=== PATIENT | male | born 1955 | race Caucasian/White ===

== ENCOUNTER 2019-04-04 05:42 | Day surgery (SDC) | payer MEDICARE, MEDICAID ==
[~2019-04-04] VITALS: Ht 182.9 cm; Wt 104.4 kg
[~2019-04-04 05:42] MED LIST: ASPI81TA52 PO; BACL10TA2 PO; COU5T PO; ENAL2.5T40 PO; ENOX100S3 SQ; FLO0.4C PO; ISOS30TA6 PO; METF500T PO; METO50TA17 PO; NORTRIPTYLINE PO; OXYM30TA8 PO; PRAV80TA3 PO; TAPE100T2 PO
[2019-04-04] MEDS ORDERED: LORazepam 0.5 MG tablet PO PRN (06:05)
[2019-04-04] MEDS ORDERED: normal saline 1,000 ML IV SCH (06:05)
[2019-04-04] MEDS ORDERED: diphenhydrAMINE 25mg capsule PO PRN (06:05)
[2019-04-04] MEDS ORDERED: LIDOcaine 1% (10mg/ml)w/preservative injection 20ml MDV ONE (06:19)
[2019-04-04] MEDS ORDERED: iohexol 350MG/ML 100ml bottle IV ONE (06:19)
[2019-04-04] MEDS ORDERED: fentaNYL/PF 50MCG/1 ML 2ML syringe ONE (06:19)
[2019-04-04] MEDS ORDERED: midazolam 2 mg/2 ml injection ONE (06:19)
[2019-04-04 06:24] VITALS: BP 117/75
[2019-04-04] MEDS ORDERED: POTA20TA19 PO (06:25)
[2019-04-04] MEDS ORDERED: FURO-149 PO (06:25)
[2019-04-04] MEDS ORDERED: APIX5TAB5 (06:25)
[2019-04-04] MEDS ORDERED: LYR75C PO (06:25)
[2019-04-04] MEDS ORDERED: BUPR8TAB4 SL (06:29)
[2019-04-04] MEDS ORDERED: nitroGLYCERIN-Tridil 50MG/D5W 250 ML IV ONE (06:30)
[2019-04-04] MEDS ORDERED: verapamil 2.5 mg/ml inj IV ONE (06:30)
[2019-04-04] MEDS ORDERED: heparin 1,000unit/ml 10ml vial 10 ML ONE (06:30)
[2019-04-04 07:30] VITALS: BP 114/76
[2019-04-04 07:45] VITALS: BP 121/39
[2019-04-04 08:00] VITALS: BP 106/54
[2019-04-04 08:15] VITALS: BP 109/58
[2019-04-04 08:45] VITALS: BP 120/52
== END 2019-04-04 09:10 | disposition home or self-care (01) ==
LOC: SSTAY O 05:42
PROVIDERS: ATTEND Internal Medicine Interventional Cardiology
DX: R94.39 Abnormal result of other cardiovascular function study (principal); I11.0 Hypertensive heart disease with heart failure; I50.22 Chronic systolic (congestive) heart failure; I48.0 Paroxysmal atrial fibrillation; E78.49 Other hyperlipidemia; E11.9 Type 2 diabetes mellitus without complications; F17.210 Nicotine dependence, cigarettes, uncomplicated; Z86.73 Personal history of transient ischemic attack (TIA), and cerebral infarction without residual deficits; Z79.899 Other long term (current) drug therapy; Z79.82 Long term (current) use of aspirin
CPT/HCPCS: 82948; 93458; 99152; 99153; C1769; C1894; J1644; J2001; J2250; J3010; J7030; Q9967; A4620; A6258; J3490

== ENCOUNTER 2019-05-23 22:18 | Inpatient (IN) | payer MEDICARE, MEDICAID ==
[~2019-05-23] VITALS: Ht 182.9 cm; Wt 112.7 kg
[~2019-05-23 22:18] MED LIST changes: +APIX5TAB5; -BACL10TA2 PO; +BUPR8TAB4 SL; -COU5T PO; -ENOX100S3 SQ; -FLO0.4C PO; +FURO-149 PO; +LYR75C PO; -OXYM30TA8 PO; +POTA20TA19 PO; -TAPE100T2 PO
[2019-05-23] MEDS ORDERED: iohexol 350MG/ML 100ml bottle IV ONE (22:24)
[2019-05-23] MEDS ORDERED: nitroGLYCERIN-Tridil 50MG/D5W 250 ML IV ONE (22:25)
[2019-05-23] MEDS ORDERED: nitroGLYCERIN 1gm ointment UD TP ONE (22:30)
[2019-05-23] MEDS ORDERED: furosemide 10 MG/1 ML 10ml inj IV ONE (22:30)
[2019-05-23 22:41] LABS: ABG BASE EXCESS -4.9 mmol/L (-2.0-3.0); ABG OXYGEN SATURATION 97.4 % (95-98); ABG PCO2 (T) 31.4 mmHg (35.0-45.0); ABG PH (T) 7.397 (7.350-7.450); ABG PO2 (T) 106.1 mmHg (83-108); FLOW 5 L/min; FMetHb 0.3 % (0.3-1.12); FO2Hb 95.2 % (94-100); PATIENT TEMPERATURE 36.6; RESPIRATORY RATE (OBSERVED) 22 b/min; TOTAL HEMOGLOBIN 13.6 G/dl (14.0-17.9)
--- NOTE | 2019-05-23 22:42 | NUR ---
pt going to CT on ekg monitor with Ashly ABDUL
[2019-05-23 22:51] LABS: ALANINE AMINOTRANSFERASE 127 U/L (12-78); ALBUMIN 3.2 G/DL (3.4-5.0); ALBUMIN/GLOBULIN RATIO 1.1 (1.1-1.5); ALKALINE PHOSPHATASE 293 IU/L (46-116); ANION GAP 14 (8-16); ASPARTATE AMINO TRANSFERASE 208 U/L (10-37); BILIRUBIN,TOTAL 1.4 MG/DL (0.1-1.0); BLOOD UREA NITROGEN 41 MG/DL (7-18); BUN/CREATININE RATIO 23.7 (5.4-32.0); CALCIUM 8.9 MG/DL (8.5-10.1); CHLORIDE 100 MMOL/L (99-107); CREATININE 1.73 MG/DL (0.60-1.10); GLUCOSE 177 MG/DL (70-104); POTASSIUM 5.1 MMOL/L (3.5-5.1); SODIUM 136 MMOL/L (135-145); TOTAL PROTEIN 6.1 G/DL (6.4-8.2); eGFR 40 ML/MIN
[2019-05-23 22:58] LABS: MAGNESIUM 1.7 MG/DL (1.5-2.4)
[2019-05-23 23:11] LABS: HEMOGLOBIN 13.6 g/dl (14.0-17.9)
[2019-05-23 23:13] LABS: BASOPHILS # (AUTO) 0.1 X10'3 (0-0.2); BASOPHILS % (AUTO) 0.5 % (0-1); EOSINOPHILS # (AUTO) 0.1 X10'3 (0-0.9); EOSINOPHILS % (AUTO) 0.8 % (0-6); LYMPHOCYTES # (AUTO) 1.2 X10'3 (1.1-4.8); MEAN CORPUSCULAR HEMOGLOBIN 26.4 PG (27.0-31.0); MEAN CORPUSCULAR HGB CONC 32.3 g/dL (33.0-36.5); MEAN CORPUSCULAR VOLUME 81.8 FL (78-98); MEAN PLATELET VOLUME 11.5 FL (7.4-10.4); MONOCYTES % (AUTO) 8.7 % (2-12); NEUTROPHILS # (AUTO) 9.3 X10'3 (1.8-7.7); PLATELET COUNT 142 X10'3 (140-440); RED BLOOD COUNT 5.14 X10'6 (4.70-6.10); RED CELL DISTRIBUTION WIDTH 16.3 % (11.5-14.5); WHITE BLOOD COUNT 11.6 X10'3 (4.5-11.0)
[2019-05-23] MEDS ORDERED: ASPI81TA52 PO (23:19)
[2019-05-23] MEDS ORDERED: FURO-150 PO (23:19)
[2019-05-23] MEDS ORDERED: LYR75C PO (23:19)
[2019-05-23] MEDS ORDERED: AMIT50TA3 PO (23:19)
[2019-05-23] MEDS ORDERED: ISOS30TA9 PO (23:19)
[2019-05-23] MEDS ORDERED: METF500T PO (23:19)
[2019-05-23] MEDS ORDERED: APIX5TAB3 PO (23:19)
[2019-05-23] MEDS ORDERED: PRAV80TA3 PO (23:19)
[2019-05-23] MEDS ORDERED: POTA10TA10 PO (23:19)
[2019-05-23] MEDS ORDERED: METO1TAB25 PO (23:19)
[2019-05-23] MEDS ORDERED: BUPR1FIL3 SL (23:19)
[2019-05-23] MEDS ORDERED: ENAL2.5T40 PO (23:19)
[2019-05-23 23:41] LABS: LARGE PLATELETS MODERATE; PLATELET ESTIMATE NORMAL
[2019-05-23] MEDS ORDERED: HYDROcodone/acetaminophen 5mg/325mg tablet PO PRN (23:50)
[2019-05-23] MEDS ORDERED: morphine 2 MG/ML inj. syringe IV PRN ×2 (23:50)
[2019-05-23] MEDS ORDERED: magnesium hydroxide 30ml (MOM) UD suspension PO PRN (23:50)
[2019-05-23] MEDS ORDERED: mag hydrox/Alum hydrox/simeth 30ml oral suspension PO PRN (23:50)
[2019-05-23] MEDS ORDERED: ondansetron/PF 4mg/2ml inj IV PRN (23:50)
[2019-05-23] MEDS ORDERED: dextrose 50%-water 50ml dispensing syringe IV PRN ×2 (23:50)
[2019-05-23] MEDS ORDERED: MESSAGE TO PHARMACY PO ONE (23:50)
[2019-05-23] MEDS ORDERED: dextrose ORAL solution 15 GM/59 ML bottle PO PRN ×2 (23:50)
[2019-05-23] MEDS ORDERED: glucagon, human recombinant 1mg kit SUBCUT PRN (23:50)
[2019-05-23] MEDS ORDERED: acetaminophen 325mg tablet PO PRN ×2 (23:50)
[2019-05-24] VITALS (7 sets, daily range): BP systolic 88–121; BP diastolic 49–97
--- NOTE | 2019-05-24 01:00 | NUR ---
I have received report from CHANTELL Heath and had the opportunity to ask questions and assume patient care.
--- NOTE | 2019-05-24 01:10 | NUR ---
Pt arrived to room 302 via gurney. With all known belongings. Placed on Mobile #[id number]. Oriented to room. call light in reach. BLL. Side rails up. Will continue to monitor
[2019-05-24 02:26] LABS: BASOPHILS # (AUTO) 0.1 X10'3 (0-0.2); BASOPHILS % (AUTO) 0.7 % (0-1); EOSINOPHILS % (AUTO) 0.4 % (0-6); HEMATOCRIT 39.1 % (42.0-52.0); HEMOGLOBIN 12.7 g/dl (14.0-17.9); LYMPHOCYTES # (AUTO) 1.1 X10'3 (1.1-4.8); LYMPHOCYTES % (AUTO) 11.2 % (21-51); MEAN CORPUSCULAR HEMOGLOBIN 26.7 PG (27.0-31.0); MEAN CORPUSCULAR HGB CONC 32.4 g/dL (33.0-36.5); MEAN CORPUSCULAR VOLUME 82.6 FL (78-98); MEAN PLATELET VOLUME 10.7 FL (7.4-10.4); MONOCYTES # (AUTO) 0.9 X10'3 (0-0.9); MONOCYTES % (AUTO) 9.3 % (2-12); NEUTROPHILS # (AUTO) 7.3 X10'3 (1.8-7.7); NEUTROPHILS % (AUTO) 78.4 % (42-75); PLATELET COUNT 115 X10'3 (140-440); RED BLOOD COUNT 4.74 X10'6 (4.70-6.10); RED CELL DISTRIBUTION WIDTH 16.2 % (11.5-14.5); WHITE BLOOD COUNT 9.3 X10'3 (4.5-11.0)
[2019-05-24 02:29] LABS: ALBUMIN 3.1 G/DL (3.4-5.0); ANION GAP 11 (8-16); BLOOD UREA NITROGEN 41 MG/DL (7-18); BUN/CREATININE RATIO 27.2 (5.4-32.0); CALCIUM 8.6 MG/DL (8.5-10.1); CHLORIDE 101 MMOL/L (99-107); CREATININE 1.51 MG/DL (0.60-1.10); GLUCOSE 171 MG/DL (70-104); POTASSIUM 4.1 MMOL/L (3.5-5.1); SODIUM 137 MMOL/L (135-145); TOTAL CARBON DIOXIDE 25.1 MMOL/L (24-32); eGFR 47 ML/MIN
--- NOTE | 2019-05-24 02:56 | NUR ---
NOTIFIED PAGER ID: [phone] MESSAGE: Reji May, [id number]- order in EMR for nitro 1.5ml/hr drip from 2230, pt has never been on it, pt received 1inch nitro paste in ER at 2300. current bp is 97/68 HR 99 no chest pain. may we d/c drip order silva ABDUL Addendum: 05/24/19 at 0304 by Román Cook RN DR. Silva responded, d/c nitro drip order.
[2019-05-24 03:06] LABS: HEMOGLOBIN A1C 9.6 % (4.5-6.2)
--- NOTE | 2019-05-24 04:17 | NUR ---
MD NOTIFIED called Dr. Silva pt having frequent 10 beat runs of V-tach. Per . check MG and Phos, orders placed, blood drawn and sent to lab stat.
[2019-05-24 04:55] LABS: MAGNESIUM 1.6 MG/DL (1.5-2.4); PHOSPHORUS 5.8 MG/DL (2.3-4.5)
[2019-05-24 04:58] LABS: LARGE PLATELETS MODERATE; PLATELET ESTIMATE DECREASED
[2019-05-24 04:59] LABS: ANISOCYTOSIS 1+; ELLIPTOCYTES 1+
--- NOTE | 2019-05-24 05:09 | NUR ---
NOTIFIED PAGER ID: [phone] MESSAGE: Reji May, [id number]- pt continues to have frequent runs of V-tach, about 10beat runs every 5 minutes, phos is 5.8 and Mg 1.6. Luis E ABDUL
--- NOTE | 2019-05-24 05:25 | NUR ---
I have reviewed Vicky Parra's charting and agree.
[2019-05-24] MEDS ORDERED: metoprolol tartrate 50mg tablet PO ONE (06:10)
--- NOTE | 2019-05-24 06:10 | NUR ---
LOPRESSOR ONE TIME DOSE 1 time dose of Lopressor was given under the 0800 schedule time. MD. Silva ordered Lopressor dose early due to pt abnormal rhythm and wanted the 0800 dose held. one time dose was ordered in order to pull med early and non-admined was to get the doses back on the correct schedule. day shift nurse is aware of these changes and is aware of how the MD wants to proceed.
[2019-05-24] MEDS: metoprolol tartrate 50mg tablet PO SCH ×2 (06:16→20:58)
--- NOTE | 2019-05-24 06:52 | NUR ---
Problems reprioritized. Patient report given, questions answered & plan of care reviewed with Sony ABDUL.
[2019-05-24] MEDS: aspirin 81mg tablet.DR PO SCH (07:33)
[2019-05-24] MEDS: lisinopril 10 MG tablet PO SCH (07:34)
[2019-05-24] MEDS: pregabalin 75mg capsule PO SCH ×4 (07:34→20:58)
[2019-05-24] MEDS: isosorbide dinitrate 30mg tablet PO SCH (07:34)
[2019-05-24] MEDS: furosemide 40mg/4ml inj IV SCH ×4 (07:35→23:41)
[2019-05-24] MEDS ORDERED: potassium Cl 2 mEq/ml inj IV ONE (08:00)
[2019-05-24] MEDS ORDERED: apixaban 5mg tablet PO SCH (08:00)
[2019-05-24] MEDS ORDERED: papaverine 30 mg/ml 2ml inj. ONE (08:00)
[2019-05-24] MEDS ORDERED: HYDROchlorothiazide 25mg tablet PO SCH (08:00)
[2019-05-24] MEDS ORDERED: heparin 10,000 units/1 ML INJ ONE (08:00)
[2019-05-24] MEDS ORDERED: pravastatin 40mg tablet PO SCH (08:00)
[2019-05-24] MEDS ORDERED: metFORMIN 500mg tablet PO SCH (08:00)
[2019-05-24] MEDS ORDERED: potassium Cl 20 mEq SR tablet PO PRN ×2 (08:00→08:50)
[2019-05-24] MEDS ORDERED: magnesium Cl slow-release 64mg tablet PO PRN (08:50)
[2019-05-24] MEDS ORDERED: potassium CL 10mEq/100ml bag 100 ML IV PRN ×2 (08:50)
[2019-05-24] MEDS ORDERED: magnesium 4gm in 100ml NS 100 ML IV PRN (08:50)
[2019-05-24] MEDS ORDERED: magnesium 2GM in 50ml NS 50 ML IV ONE (08:55)
[2019-05-24] MEDS ORDERED: dextrose 50%-water 50ml dispensing syringe IV PRN ×2 (09:05)
[2019-05-24] MEDS ORDERED: MESSAGE TO PHARMACY PO ONE (09:05)
[2019-05-24] MEDS ORDERED: insulin Lispro (HumaLOG) vial - multi-dose SQ SCH (09:05)
[2019-05-24] MEDS ORDERED: glucagon, human recombinant 1mg kit SUBCUT PRN (09:05)
[2019-05-24] MEDS ORDERED: dextrose ORAL solution 15 GM/59 ML bottle PO PRN ×2 (09:05)
[2019-05-24] MEDS: K and/or MAG REPLACEMENT MC SCH (09:21)
[2019-05-24 11:51] LABS: ALANINE AMINOTRANSFERASE 133 U/L (12-78); ALBUMIN/GLOBULIN RATIO 1.1 (1.1-1.5); ALKALINE PHOSPHATASE 248 IU/L (46-116); ASPARTATE AMINO TRANSFERASE 159 U/L (10-37); BILIRUBIN,DIRECT 0.4 MG/DL (0-0.3); TOTAL PROTEIN 5.7 G/DL (6.4-8.2)
--- NOTE | 2019-05-24 13:03 | NUR ---
Spoke with ED personnel at [facility] who stated the patient went directly to the airport for air transport to [facility]. He stated he spoke with [facility]' EMS team and they did not find any belongings in their ambulance. He also spoke with flight crew from [facility] who checked their helicopter and found no belongings. Per [facility] ED record pt had no clothing or wallet with him.
[2019-05-24] MEDS: insulin Lispro (HumaLOG) vial - multi-dose SQ SCH ×2 (13:07→19:32)
[2019-05-24] MEDS: HYDROcodone/acetaminophen 10/325mg tab PO PRN (13:12)
--- NOTE | 2019-05-24 13:15 | NUR ---
Pt is complaining to staff that his wallet and khaki pants are missing, Pt states that when he arrived to [facility] Emergency department that he was wearing his pants and they were removed by hospital staff, Emergency department, security, hospital safe, and EVS "lost and found" were contacted but there were no pants or wallet found, No belongings noted in ED or PCU admission notes when he was transferred, spoke with NOC nurses who admitted pt and no belongings noted, pt's significant other is disgruntled and went down to the lobby to "look for herself", charge nurse and nursing boat cleaning supervisor notified, will continue to search.
--- NOTE | 2019-05-24 13:19 | NUR ---
DM consult: Pt with A1c 9.6 seen at bedside. Pt reports seeing his PCP q 2-3 weeks for DM management and states he takes his medications per rx. Pt reports mostly only checking BG levels when he feels like he is experiencing hyper/hypoglycemia and previously was following a CHO controlled diet however hasn't been recently d/t feeling ill. Pt provided with written and verbal DM education with referral to outpatient DM class and RD contact information. RD encouraged pt to attend class and check BG levels more frequently. Pt admit with SOB, CP, and CHF. Pt endorses a good appetite which is evident with documented 100% PO intake on heart healthy CHO controlled diet meeting nutrient needs. Pt reports still hungry following meals and with food requests that were d/w dietary, see below. Pt denies food allergies, difficulty chewing/swallowing, or constipation/diarrhea. LBM 05/22. Will continue to follow. Recommendations: 1) Continue heart healthy CHO controlled diet 2) Double eggs QD at breakfast; double protein TID; double oatmeal QD at breakfast with margarine 3) Routine bowel care 4) Wt per rx Addendum: 05/24/19 at [address] Amended: Links added.
[2019-05-24] MEDS ORDERED: heparin 10,000 units/1 ML INJ IV PRN (13:45)
[2019-05-24] MEDS ORDERED: heparin 10,000 units/1 ML INJ IV ONE (13:45)
--- NOTE | 2019-05-24 15:31 | NUR ---
Pt refuses to have liriano catheter removed due to being on lasix and would prefer the catheter to make it easier for him since he will be urinating more often.
[2019-05-24] MEDS: heparin 25,000 UNIT/250ml bag 250 ML IV SCH ×2 (15:44→21:54)
--- NOTE | 2019-05-24 18:16 | NUR ---
Patient in room PCU 3023. I have received report from CHANTELL Cardoza and had the opportunity to ask questions and assume patient care.
--- NOTE | 2019-05-24 18:23 | NUR ---
Problems reprioritized. Patient report given, questions answered & plan of care reviewed with Rafaela ABDUL.
[2019-05-24] MEDS: amitriptyline 50mg tablet PO SCH (20:57)
[2019-05-24] MEDS ORDERED: insulin glargine (Lantus) pen - multi-dose SQ SCH (21:00)
[2019-05-24] MEDS: insulin glargine (Lantus) pen - multi-dose SQ SCH (21:59)
--- NOTE | 2019-05-24 23:44 | NUR ---
PAGER ID: [phone] MESSAGE: Patient Reji May is in need of breathing tx. Wheezing is audible without auscultation. Lung sounds are also course and diminished. Pt experiencing SOB. Nathaly Russo [id number] Addendum: 05/24/19 at 2347 by Sherri Puri RN okayed breathing tx to be ordered.
[2019-05-25] MEDS: ipratropium/albuterol 3ml nebule NEB PRN ×4 (00:35→17:51)
[2019-05-25] MEDS: magnesium 2GM in 50ml NS 50 ML IV PRN (02:32)
[2019-05-25 03:00] VITALS: BP 96/61
[2019-05-25] MEDS: HYDROcodone/acetaminophen 10/325mg tab PO PRN ×4 (04:25→21:12)
[2019-05-25 04:38] LABS: BASOPHILS # (AUTO) 0.1 X10'3 (0-0.2); BASOPHILS % (AUTO) 1.2 % (0-1); EOSINOPHILS # (AUTO) 0.2 X10'3 (0-0.9); EOSINOPHILS % (AUTO) 2.1 % (0-6); HEMATOCRIT 38.5 % (42.0-52.0); HEMOGLOBIN 12.5 g/dl (14.0-17.9); LYMPHOCYTES # (AUTO) 1.4 X10'3 (1.1-4.8); LYMPHOCYTES % (AUTO) 15.9 % (21-51); MEAN CORPUSCULAR HEMOGLOBIN 26.7 PG (27.0-31.0); MEAN CORPUSCULAR HGB CONC 32.4 g/dL (33.0-36.5); MEAN CORPUSCULAR VOLUME 82.4 FL (78-98); MEAN PLATELET VOLUME 10.2 FL (7.4-10.4); MONOCYTES % (AUTO) 11.3 % (2-12); NEUTROPHILS # (AUTO) 5.9 X10'3 (1.8-7.7); NEUTROPHILS % (AUTO) 69.5 % (42-75); PLATELET COUNT 104 X10'3 (140-440); RED BLOOD COUNT 4.68 X10'6 (4.70-6.10); RED CELL DISTRIBUTION WIDTH 16.2 % (11.5-14.5); WHITE BLOOD COUNT 8.5 X10'3 (4.5-11.0)
[2019-05-25 04:46] LABS: ANION GAP 9 (8-16); BLOOD UREA NITROGEN 39 MG/DL (7-18); BUN/CREATININE RATIO 31.2 (5.4-32.0); CALCIUM 8.6 MG/DL (8.5-10.1); CHLORIDE 100 MMOL/L (99-107); CREATININE 1.25 MG/DL (0.60-1.10); GLUCOSE 133 MG/DL (70-104); MAGNESIUM 2.9 MG/DL (1.5-2.4); SODIUM 139 MMOL/L (135-145); TOTAL CARBON DIOXIDE 30.3 MMOL/L (24-32); eGFR 59 ML/MIN
--- NOTE | 2019-05-25 05:03 | NUR ---
Critical K: 3.0 PAGER ID: [phone] MESSAGE: [id number] Reji May: Critical K of 3.0, will replace per protocol. Thanks. Alexandria ABDUL [id number]
--- NOTE | 2019-05-25 05:05 | NUR ---
Critical cardiac ptt at 136. Heparin will be held until 0705 per protocol. Will continue to monitor.
--- NOTE | 2019-05-25 06:20 | NUR ---
Patient was weighed using the standing scale. Accurate weight has been reported to pharmacy.
--- NOTE | 2019-05-25 06:22 | NUR ---
Patient in room PCU 3023. I have received report from CHANTELL Hooks and had the opportunity to ask questions and assume patient care.
--- NOTE | 2019-05-25 06:25 | NUR ---
Patient in room PCU 3023. I have received report from Rafaela ABDUL and had the opportunity to ask questions and assume patient care.
[2019-05-25 07:00] VITALS: BP 97/56
[2019-05-25] MEDS: heparin 25,000 UNIT/250ml bag 250 ML IV SCH (07:16)
[2019-05-25] MEDS: K and/or MAG REPLACEMENT MC SCH (08:00)
[2019-05-25] MEDS: lisinopril 10 MG tablet PO SCH (08:32)
[2019-05-25] MEDS: isosorbide dinitrate 30mg tablet PO SCH (08:32)
[2019-05-25] MEDS: pregabalin 75mg capsule PO SCH ×4 (08:32→21:12)
[2019-05-25] MEDS: aspirin 81mg tablet.DR PO SCH (08:32)
[2019-05-25] MEDS: furosemide 40mg/4ml inj IV SCH ×2 (08:32→16:00)
[2019-05-25] MEDS: metoprolol tartrate 50mg tablet PO SCH (08:33)
[2019-05-25 09:00] VITALS: BP 116/65
--- NOTE | 2019-05-25 10:05 | NUR ---
rn starting IV at this time Addendum: 05/25/19 at 1012 by Rj Uriostegui RT Amended: Links added.
--- NOTE | 2019-05-25 10:15 | NUR ---
spoke with Dr Call - due to patients shortness of breath and persistant cough at rest may delay pft until patient able to adequately perfom FVC manuver - cabg procedure not to be until sunday 05/27 at the earliest Addendum: 05/25/19 at 1030 by Rj Uriostegui RT Amended: Links added.
--- NOTE | 2019-05-25 10:50 | NUR ---
PATIENT ATTEMPTED A FVC MANUVER AFTER RECEIVING A DUO NEB NEBULIZED TX BY MOUTHPIECE - AT DURATION OF 3 TO 4 SECONDS ATTEMPT STOPPED DUE TO PERSISTANT COUGH AND SHORTNESS OF BREATH - AT THIS POINT PATIENT COMPLAINED OF DIZZYNESS AND SEEING STARS Addendum: 05/25/19 at 1106 by Rj Uriostegui RT Amended: Links added.
[2019-05-25 11:00] VITALS: BP 99/62
[2019-05-25] MEDS: insulin Lispro (HumaLOG) vial - multi-dose SQ SCH ×2 (13:06→19:41)
[2019-05-25] MEDS: potassium Cl 20 mEq SR tablet PO PRN ×3 (13:07→21:12)
[2019-05-25 15:00] VITALS: BP 100/59
--- NOTE | 2019-05-25 18:16 | NUR ---
Problems reprioritized. Patient report given, questions answered & plan of care reviewed with CHANTELL Morales and CHANTELL Padilla.
--- NOTE | 2019-05-25 18:17 | NUR ---
Problems reprioritized. Patient report given, questions answered & plan of care reviewed with Carmen ABDUL.
--- NOTE | 2019-05-25 18:19 | NUR ---
Orientee documentation: I have reviewed and agree with interventions, assessments performed and documented by Neva ABDUL. Orientee Medication Administration: For this medication-pass time frame, medication were reviewed, dispensed, administered and documented per hospital policy by Neva ABDUL.
--- NOTE | 2019-05-25 18:19 | NUR ---
Patient in room PCU 3023. I have received report from Neva RN and Neva RN and had the opportunity to ask questions and assume patient care.
[2019-05-25 18:30] VITALS: BP 98/58
[2019-05-25] MEDS: carvedilol 6.25mg tablet PO SCH (21:12)
[2019-05-25] MEDS: amitriptyline 50mg tablet PO SCH (21:12)
[2019-05-25] MEDS: enoxaparin 80mg/0.8ml syringe SUBCUT SCH (21:16)
[2019-05-25] MEDS: enoxaparin 30mg/0.3ml syringe SUBCUT SCH (21:16)
[2019-05-25] MEDS: insulin glargine (Lantus) pen - multi-dose SQ SCH (21:21)
--- NOTE | 2019-05-25 23:12 | NUR ---
PAGER ID: [phone] MESSAGE: Patient Reji May Rm [id number] Patient is having frequent ectopy that is intermittently rapid a fib or SVT. He has not been symptomatic and has had this off and on since admit. Carmen ABDUL ext. [phone]
--- NOTE | 2019-05-26 01:00 | NUR ---
Orientee documentation: I have reviewed and agree with all interventions, assessments performed and documented by Valerie ABDUL. Orientee Medication Administration: For this medication-pass time frame, all medication were reviewed, dispensed, administered and documented per hospital policy by Valerie ABDUL.
--- NOTE | 2019-05-26 01:05 | NUR ---
Patient transferred over the ACCE unit at this time and is awake, alert, and appropriate. Report had been called over to Cyndy ABDUL.
[2019-05-26 01:47] LABS: ANION GAP 6 (8-16); BLOOD UREA NITROGEN 35 MG/DL (7-18); BUN/CREATININE RATIO 30.2 (5.4-32.0); CALCIUM 8.6 MG/DL (8.5-10.1); CHLORIDE 103 MMOL/L (99-107); CREATININE 1.16 MG/DL (0.60-1.10); GLUCOSE 94 MG/DL (70-104); MAGNESIUM 2.2 MG/DL (1.5-2.4); POTASSIUM 3.9 MMOL/L (3.5-5.1); SODIUM 141 MMOL/L (135-145); TOTAL CARBON DIOXIDE 32.1 MMOL/L (24-32); eGFR 64 ML/MIN
[2019-05-26 01:49] LABS: BASOPHILS % (AUTO) 0.7 % (0-1); EOSINOPHILS # (AUTO) 0.2 X10'3 (0-0.9); EOSINOPHILS % (AUTO) 2.4 % (0-6); HEMATOCRIT 36.6 % (42.0-52.0); LYMPHOCYTES # (AUTO) 1.2 X10'3 (1.1-4.8); LYMPHOCYTES % (AUTO) 15.5 % (21-51); MEAN CORPUSCULAR HEMOGLOBIN 26.8 PG (27.0-31.0); MEAN CORPUSCULAR HGB CONC 32.8 g/dL (33.0-36.5); MEAN CORPUSCULAR VOLUME 81.8 FL (78-98); MEAN PLATELET VOLUME 10.4 FL (7.4-10.4); MONOCYTES # (AUTO) 0.9 X10'3 (0-0.9); MONOCYTES % (AUTO) 11.3 % (2-12); NEUTROPHILS # (AUTO) 5.3 X10'3 (1.8-7.7); NEUTROPHILS % (AUTO) 70.1 % (42-75); PLATELET COUNT 114 X10'3 (140-440); RED BLOOD COUNT 4.48 X10'6 (4.70-6.10); WHITE BLOOD COUNT 7.6 X10'3 (4.5-11.0)
[2019-05-26 02:00] VITALS: BP_SYST 91; BP_SYST 98; BP_DIAS 54; BP_DIAS 62
--- NOTE | 2019-05-26 02:39 | NUR ---
Called Dr. Silva and informed him regarding the 11 beats of V Tach at 0232 and 0233, and his blood pressure being 85/58 as well as his potassium being 3.9. He acknowledged it but did not order anything at this moment.
[2019-05-26 06:00] VITALS: BP 95/61
--- NOTE | 2019-05-26 06:00 | NUR ---
I have received report from Ronda ABDUL and Brice ABDUL and had the opportunity to ask questions and assume patient care.
[2019-05-26] MEDS: aspirin 81mg tablet.DR PO SCH (07:05)
[2019-05-26] MEDS: pregabalin 75mg capsule PO SCH ×4 (07:05→21:00)
[2019-05-26] MEDS: isosorbide dinitrate 30mg tablet PO SCH (07:07)
[2019-05-26] MEDS: enoxaparin 30mg/0.3ml syringe SUBCUT SCH ×3 (07:08→20:47)
[2019-05-26] MEDS: enoxaparin 80mg/0.8ml syringe SUBCUT SCH ×3 (07:08→23:19)
[2019-05-26] MEDS: HYDROcodone/acetaminophen 10/325mg tab PO PRN ×2 (07:19→19:32)
[2019-05-26] MEDS: carvedilol 6.25mg tablet PO SCH ×2 (08:00→19:34)
[2019-05-26] MEDS: K and/or MAG REPLACEMENT MC SCH (08:00)
[2019-05-26] MEDS: furosemide 40mg/4ml inj IV SCH ×4 (08:00→23:19)
[2019-05-26] MEDS ORDERED: amiodarone 150mg/dext, iso-os 100 ML IV ONE (09:25)
[2019-05-26 11:00] VITALS: BP 99/63
[2019-05-26] MEDS: ALPRAZolam 0.25mg tablet PO PRN (13:14)
[2019-05-26] MEDS: nicotine 14mg patch - 24hr TD SCH (13:14)
[2019-05-26 15:00] VITALS: BP 99/75
--- NOTE | 2019-05-26 15:50 | NUR ---
The pt. refused insulin after breakfast and lunch. Said he would take some if he needs it at diner.
--- NOTE | 2019-05-26 18:00 | NUR ---
Patient in room MED 308. I have received report from VINH ABDUL and had the opportunity to ask questions and assume patient care.
--- NOTE | 2019-05-26 18:24 | NUR ---
Problems reprioritized. Patient report given, questions answered & plan of care reviewed with Pura ABDUL and Brice ABDUL.
--- NOTE | 2019-05-26 18:25 | NUR ---
Orienteer documentation: I have reviewed and agree with all interventions, assessments performed and documented by Salbador ABDUL.
--- NOTE | 2019-05-26 18:38 | NUR ---
PAGER ID: [phone] MESSAGE: 308 pt Lalo. Sustained VTACH > 30 min up to 152 bpm, currently PO Amio 200 mg BID. Please advise. Thank you - Yvrose [phone]
--- NOTE | 2019-05-26 18:39 | NUR ---
Patient up to bathroom placed on portal tele monitor and pm technician notified.
[2019-05-26] MEDS: insulin Lispro (HumaLOG) vial - multi-dose SQ SCH (19:22)
[2019-05-26] MEDS: docusate sod 100mg capsule PO SCH (19:24)
[2019-05-26] MEDS: amiodarone 200mg tablet PO SCH (19:24)
[2019-05-26 19:43] VITALS: BP 125/68
[2019-05-26] MEDS: amitriptyline 50mg tablet PO SCH (21:00)
[2019-05-26] MEDS: temazepam 15mg capsule PO SCH (21:00)
[2019-05-26] MEDS: insulin glargine (Lantus) pen - multi-dose SQ SCH (21:00)
--- NOTE | 2019-05-26 21:20 | NUR ---
patient's 2100 BS was 102. Refused the scheduled lantus.
[2019-05-26 22:00] VITALS: BP 91/61
--- NOTE | 2019-05-26 23:42 | NUR ---
PATIENT REFUSING TO GET BACK INTO BED, REFUSING TO STAY ON MONITORS, NON=COMPLIANT WITH CARE, CAREPLAN
[2019-05-27 02:00] VITALS: BP 98/54
[2019-05-27 04:59] LABS: BASOPHILS # (AUTO) 0.1 X10'3 (0-0.2); BASOPHILS % (AUTO) 0.9 % (0-1); EOSINOPHILS # (AUTO) 0.3 X10'3 (0-0.9); EOSINOPHILS % (AUTO) 3.9 % (0-6); HEMATOCRIT 40.1 % (42.0-52.0); HEMOGLOBIN 12.8 g/dl (14.0-17.9); LYMPHOCYTES # (AUTO) 1.2 X10'3 (1.1-4.8); LYMPHOCYTES % (AUTO) 16.1 % (21-51); MEAN CORPUSCULAR HEMOGLOBIN 26.6 PG (27.0-31.0); MEAN CORPUSCULAR HGB CONC 31.9 g/dL (33.0-36.5); MEAN CORPUSCULAR VOLUME 83.5 FL (78-98); MEAN PLATELET VOLUME 10.6 FL (7.4-10.4); MONOCYTES # (AUTO) 0.9 X10'3 (0-0.9); MONOCYTES % (AUTO) 11.4 % (2-12); NEUTROPHILS # (AUTO) 5.2 X10'3 (1.8-7.7); NEUTROPHILS % (AUTO) 67.7 % (42-75); PLATELET COUNT 122 X10'3 (140-440); RED CELL DISTRIBUTION WIDTH 16.6 % (11.5-14.5); WHITE BLOOD COUNT 7.7 X10'3 (4.5-11.0)
[2019-05-27 05:14] LABS: ALBUMIN 3.3 G/DL (3.4-5.0); ANION GAP 9 (8-16); BLOOD UREA NITROGEN 31 MG/DL (7-18); BUN/CREATININE RATIO 25.4 (5.4-32.0); CALCIUM 8.7 MG/DL (8.5-10.1); CHLORIDE 103 MMOL/L (99-107); CREATININE 1.22 MG/DL (0.60-1.10); GLUCOSE 81 MG/DL (70-104); MAGNESIUM 1.8 MG/DL (1.5-2.4); POTASSIUM 4.1 MMOL/L (3.5-5.1); SODIUM 142 MMOL/L (135-145); TOTAL CARBON DIOXIDE 30.4 MMOL/L (24-32); eGFR 60 ML/MIN
--- NOTE | 2019-05-27 05:27 | NUR ---
I reviewed and agree with all the documentation performed by Dotty
[2019-05-27 06:00] VITALS: BP 105/76
[2019-05-27 06:31] LABS: ANISOCYTOSIS 1+; PLATELET ESTIMATE DECREASED
[2019-05-27 06:32] LABS: POLYCHROMASIA FEW
[2019-05-27 06:33] LABS: SCHISTOCYTES FEW
--- NOTE | 2019-05-27 06:45 | NUR ---
Patient in room MED 308. I have received report from Pura ABDUL and Brice ABDUL and had the opportunity to ask questions and assume patient care.
[2019-05-27 07:11] LABS: PHOSPHORUS 3.9 MG/DL (2.3-4.5)
[2019-05-27] MEDS: pregabalin 75mg capsule PO SCH ×4 (07:23→20:03)
[2019-05-27] MEDS: isosorbide dinitrate 30mg tablet PO SCH (07:23)
[2019-05-27] MEDS: aspirin 81mg tablet.DR PO SCH (07:23)
[2019-05-27] MEDS: furosemide 40mg/4ml inj IV SCH ×3 (07:23→23:45)
[2019-05-27] MEDS: amiodarone 200mg tablet PO SCH ×2 (07:23→19:58)
[2019-05-27] MEDS: enoxaparin 30mg/0.3ml syringe SUBCUT SCH (07:23)
[2019-05-27] MEDS: docusate sod 100mg capsule PO SCH ×2 (07:23→19:57)
[2019-05-27] MEDS: carvedilol 6.25mg tablet PO SCH ×2 (07:23→19:58)
[2019-05-27] MEDS: nicotine 14mg patch - 24hr TD SCH (07:24)
[2019-05-27] MEDS: enoxaparin 80mg/0.8ml syringe SUBCUT SCH (07:24)
[2019-05-27] MEDS: magnesium 2GM in 50ml NS 50 ML IV PRN (07:24)
[2019-05-27] MEDS: K and/or MAG REPLACEMENT MC SCH (08:00)
[2019-05-27 08:34] LABS: HBSAG SCREEN Negative (Negative); HEP A AB, IGM Negative (Negative); HEP B CORE AB, IGM Negative (Negative); HEPATITIS C ANTIBODY <0.1 s/co ratio (0.0-0.9)
[2019-05-27] MEDS: insulin Lispro (HumaLOG) vial - multi-dose SQ SCH ×3 (08:37→19:11)
--- NOTE | 2019-05-27 08:46 | NUR ---
Page to Case Management 308. Call y'all call us about both of these patients. Thank You.
[2019-05-27] MEDS ORDERED: MESSAGE TO NURSING PO ONE ×5 (08:55→10:00)
[2019-05-27 09:38] LABS: PARTIAL THROMBOPLASTIN TIME 32 SECONDS (22-32)
[2019-05-27 11:00] VITALS: BP 101/70
--- NOTE | 2019-05-27 11:46 | NUR ---
Page to PICC Nurse 308-Lalo. Would you mind putting in an Extended in this patient when you get a fee minute. He's probably going to be here another week and they would like to save him a few pokes if we can. Thank You.
[2019-05-27 15:00] VITALS: BP 116/84
[2019-05-27] MEDS: ipratropium/albuterol 3ml nebule NEB PRN (15:27)
[2019-05-27] MEDS: ALPRAZolam 0.25mg tablet PO PRN ×2 (16:35→23:45)
--- NOTE | 2019-05-27 17:32 | NUR ---
Checked Blood Sugar- 55, pt was complaining of a headache. Gave pt two Dextrose shots. Rechecking blood sugar in 15 minutes. Salbador ABDUL
[2019-05-27 18:00] VITALS: BP 112/91
--- NOTE | 2019-05-27 18:00 | NUR ---
Patient in room MED 308. I have received report from Vitaly ABDUL and had the opportunity to ask questions and assume patient care.
--- NOTE | 2019-05-27 18:11 | NUR ---
Problems reprioritized. Patient report given, questions answered & plan of care reviewed with Brice ABDUL and Pura ABDUL.
[2019-05-27] MEDS: metoprolol tartrate 12.5mg (1/2 tablet) PO SCH (19:59)
[2019-05-27] MEDS: amitriptyline 50mg tablet PO SCH (19:59)
[2019-05-27] MEDS ORDERED: mupirocin 2% nasal ointment 1gm UD NS SCH (20:00)
[2019-05-27] MEDS: temazepam 15mg capsule PO SCH (20:00)
--- NOTE | 2019-05-27 20:03 | NUR ---
Paged respiratory. Reji May Room 308. Needs ABG and PFT. The patient is going for CABG, first case in the morning at 0600.
[2019-05-27] MEDS: mupirocin 2% nasal ointment 1gm UD NS SCH (20:55)
[2019-05-27] MEDS: insulin glargine (Lantus) pen - multi-dose SQ SCH (21:06)
--- NOTE | 2019-05-27 21:50 | NUR ---
called blood bank and they told me that the blood is ready for the patient for tomorrow.
[2019-05-27 22:00] VITALS: BP 129/82
--- NOTE | 2019-05-27 22:07 | NUR ---
Discussed consents for CABG surgery in am; patient expressed that when he has received Diprivan in the past, he has had severe hallucinations and that he does not want any Diprivan during surgery or post surgical care. I stated it was not in his allergy list, and it was not noted by the Anesthesiologist in his notes, therefore I would call Anesthesiologist to confirm conversation and notation prior to having patient sign anesthesiologist consent. Patient was adamant it be documented on his consent for for anesthesiology not to administer Diprivan during upcoming coronary artery bypass graft in am 05/28 would call and verify with Dr. Gustafson I stated this to patient. I left message on Dr. Rodarte's voicemail, as I attempted to reach him at 2 different numbers, one of which was supplied by Customer Accounts Advisor on shift. Charge nurse informed as well.
[2019-05-27 23:11] LABS: ABG BASE EXCESS 5.9 mmol/L (-2.0-3.0); ABG HCO3 28.2 mmol/L (22.0-26.0); ABG OXYGEN SATURATION 95.7 % (95-98); ABG PCO2 (T) 32.5 mmHg (35.0-45.0); ABG PH (T) 7.554 (7.350-7.450); ABG PO2 (T) 70.2 mmHg (83-108); ALLEN'S TEST Positive; FCOHb 0.9 % (0.5-1.5); FMetHb 0.2 % (0.3-1.12); FO2Hb 94.6 % (94-100); PATIENT TEMPERATURE 36.3; RESPIRATORY RATE (OBSERVED) 22 b/min; TOTAL HEMOGLOBIN 13.1 G/dl (14.0-17.9)
[2019-05-28] VITALS (16 sets, daily range): BP systolic 90–142; BP diastolic 45–92
[2019-05-28 03:19] LABS: ALBUMIN 3.3 G/DL (3.4-5.0); ANION GAP 6 (8-16); BLOOD UREA NITROGEN 31 MG/DL (7-18); BUN/CREATININE RATIO 27.7 (5.4-32.0); CALCIUM 8.8 MG/DL (8.5-10.1); CHLORIDE 104 MMOL/L (99-107); CREATININE 1.12 MG/DL (0.60-1.10); GLUCOSE 83 MG/DL (70-104); MAGNESIUM 1.8 MG/DL (1.5-2.4); SODIUM 143 MMOL/L (135-145); TOTAL CARBON DIOXIDE 33.1 MMOL/L (24-32); eGFR 67 ML/MIN
[2019-05-28 03:24] LABS: BASOPHILS # (AUTO) 0.1 X10'3 (0-0.2); BASOPHILS % (AUTO) 1.1 % (0-1); EOSINOPHILS # (AUTO) 0.3 X10'3 (0-0.9); EOSINOPHILS % (AUTO) 3.2 % (0-6); HEMATOCRIT 39.2 % (42.0-52.0); HEMOGLOBIN 12.7 g/dl (14.0-17.9); LYMPHOCYTES # (AUTO) 1.4 X10'3 (1.1-4.8); LYMPHOCYTES % (AUTO) 16.1 % (21-51); MEAN CORPUSCULAR HEMOGLOBIN 26.9 PG (27.0-31.0); MEAN CORPUSCULAR HGB CONC 32.5 g/dL (33.0-36.5); MEAN CORPUSCULAR VOLUME 82.8 FL (78-98); MEAN PLATELET VOLUME 10.6 FL (7.4-10.4); MONOCYTES # (AUTO) 1.1 X10'3 (0-0.9); MONOCYTES % (AUTO) 13.1 % (2-12); NEUTROPHILS # (AUTO) 5.6 X10'3 (1.8-7.7); NEUTROPHILS % (AUTO) 66.5 % (42-75); PLATELET COUNT 138 X10'3 (140-440); RED BLOOD COUNT 4.73 X10'6 (4.70-6.10); RED CELL DISTRIBUTION WIDTH 16.6 % (11.5-14.5); WHITE BLOOD COUNT 8.5 X10'3 (4.5-11.0)
[2019-05-28] MEDS: ipratropium/albuterol 3ml nebule NEB PRN (04:47)
[2019-05-28] MEDS ORDERED: ROPIVAcaine 0.5% (5mg/ml) 30ml vial ONE (05:01)
--- NOTE | 2019-05-28 05:10 | NUR ---
Patient concerned about belongings not being with him. Called registration at 0415 and they said they will be up to retrieve the valuables. Patient Access up to retrieve patient's valuables at this time. Gold ring, watch and cell phone taken down to be put in the safe. Receipt in chart.
[2019-05-28] MEDS ORDERED: vancomycin/NS 1 GM ADD-VANTAGE 250 ML IV ONE (05:30)
[2019-05-28] MEDS ORDERED: insulin glargine (Lantus) pen - multi-dose SQ PRN (05:30)
[2019-05-28] MEDS ORDERED: dextrose 50%-water 50ml dispensing syringe IV PRN (05:30)
[2019-05-28] MEDS ORDERED: cefazolin/dext.iso 2gm/50ml 50 ML IV ONE (05:30)
[2019-05-28] MEDS ORDERED: NUT.TX.IMPAIRED DIGEST FXN (Ensure Clear) 237 ML PO ONE (05:30)
[2019-05-28] MEDS ORDERED: gabapentin 400mg capsule PO ONE (05:30)
[2019-05-28] MEDS ORDERED: LORazepam 2 mg/ml vial IV ONE (06:00)
[2019-05-28] MEDS ORDERED: famotidine 20mg tablet PO ONE (06:00)
[2019-05-28] MEDS: metoprolol tartrate 12.5mg (1/2 tablet) PO SCH (06:29)
[2019-05-28] MEDS ORDERED: SUFENTANIL CITRATE 50 MCG/ML 2ml ampule IV ONE (06:52)
[2019-05-28] MEDS ORDERED: midazolam 2 mg/2 ml injection ONE ×2 (06:52)
[2019-05-28] MEDS ORDERED: NORepinephrine bitartrate 8 MG in NS 250 ML BAG (32 mcg/ml) IV ONE (06:53)
[2019-05-28] MEDS ORDERED: INSULIN R 100 UNIT in NS 100ML (1 UNIT/1 ML) BAG IV ONE (06:53)
[2019-05-28] MEDS ORDERED: ePHEDrine 50MG/ML INJ. ONE (06:53)
[2019-05-28] MEDS ORDERED: sevoflurane 250ml liquid IH ONE (06:53)
[2019-05-28] MEDS ORDERED: rocuronium 10mg/ml inj IV ONE ×2 (06:53→06:57)
[2019-05-28] MEDS ORDERED: DOPamine/D5W 400mg/250ml bag IV ONE (06:53)
[2019-05-28] MEDS ORDERED: calcium chloride 100 MG/1 ML inj IV ONE ×2 (06:53→08:00)
[2019-05-28] MEDS ORDERED: aminocaproic acid 250 MG/1 ML inj. ONE ×2 (06:53→08:00)
[2019-05-28] MEDS ORDERED: protamine sulf. 10mg/ml inj. IV ONE (06:53)
[2019-05-28] MEDS ORDERED: etomidate 2mg/ml inj. ONE (06:57)
[2019-05-28] MEDS ORDERED: LIDOcaine 2% 10ml TOPICAL JELLY (Urojet) ONE (07:32)
[2019-05-28] MEDS ORDERED: albumin (human) 25% 100 ML IV solution IV ONE (08:00)
[2019-05-28] MEDS ORDERED: LIDOcaine 2% (20 mg/ml) 5ml cardiac syringe ONE (08:00)
[2019-05-28] MEDS ORDERED: sodium bicarbonate (8.4%) 1 mEq/ml syringe ONE (08:00)
[2019-05-28] MEDS ORDERED: heparin 1,000 units/ml 10ml inj ONE (08:00)
[2019-05-28] MEDS ORDERED: NORepinephrine 1 mg/ml inj IV ONE (08:00)
[2019-05-28] MEDS ORDERED: MAGNESIUM SULFATE 4 MEQ/ML (5gm/10ml) injection ONE (08:00)
[2019-05-28] MEDS ORDERED: methylPREDNISolone sod. succ. 500mg inj ONE (08:00)
[2019-05-28 08:01] LABS: ABG BASE EXCESS VENOUS 2.4 mmol/L; ABG HCO3 VENOUS 27.8 mmol/L; ABG PCO2 VENOUS 46.4 mmHg; ABG PO2 VENOUS 52.8 mmHg; CL (ABG) 98 mmol/L (99-107); FHHb VENOUS 14.7 %; FMetHb VENOUS 0.5 %; FO2Hb VENOUS 83.8 %; GLUCOSE (ABG) 181 mg/dl (70-104); K (ABG) 3.9 mmol/L (3.3-5.1); NA (ABG) 136 mmol/L (135-145); TOTAL HEMOGLOBIN 12.2 G/dl (14.0-17.9)
[2019-05-28] MEDS ORDERED: heparin 10,000 units/1 ML INJ IR ONE (08:49)
[2019-05-28] MEDS ORDERED: papaverine 30 mg/ml 2ml inj. IA ONE (08:49)
[2019-05-28 09:15] LABS: ABG BASE EXCESS VENOUS 0.8 mmol/L; ABG HCO3 VENOUS 26.7 mmol/L; ABG PCO2 VENOUS 48.2 mmHg; ABG PO2 VENOUS 35.6 mmHg; CL (ABG) 98 mmol/L (99-107); FHHb VENOUS 38.1 %; FMetHb VENOUS 0.4 %; FO2Hb VENOUS 60.5 %; GLUCOSE (ABG) 171 mg/dl (70-104); IONIZED CA (ABG) 1.11 mmol/L (1.03-1.32); K (ABG) 3.7 mmol/L (3.3-5.1); NA (ABG) 135 mmol/L (135-145); TOTAL HEMOGLOBIN 12.1 G/dl (14.0-17.9)
[2019-05-28 10:11] LABS: ABG HCO3 29.4 mmol/L (22.0-26.0); ABG OXYGEN SATURATION 99.2 % (95-98); ABG PH 7.453 (7.350-7.450); ABG PO2 213.9 mmHg (60.0-100.0); CL (ABG) 98 mmol/L (99-107); FCOHb 0.7 % (0.5-1.5); FMetHb 0.5 % (0.3-1.12); GLUCOSE (ABG) 160 mg/dl (70-104); IONIZED CA (ABG) 1.03 mmol/L (1.03-1.32); K (ABG) 3.5 mmol/L (3.3-5.1); NA (ABG) 135 mmol/L (135-145); TOTAL HEMOGLOBIN 9.3 G/dl (14.0-17.9)
[2019-05-28 10:26] LABS: ABG BASE EXCESS 3.1 mmol/L (-2.0-3.0); ABG HCO3 27.5 mmol/L (22.0-26.0); ABG OXYGEN SATURATION 99.2 % (95-98); ABG PCO2 41.3 mmHg (35.0-45.0); ABG PH 7.441 (7.350-7.450); CL (ABG) 99 mmol/L (99-107); FCOHb 0.5 % (0.5-1.5); FMetHb 0.5 % (0.3-1.12); FO2Hb 98.2 % (94-100); GLUCOSE (ABG) 153 mg/dl (70-104); IONIZED CA (ABG) 1.06 mmol/L (1.03-1.32); K (ABG) 4.2 mmol/L (3.3-5.1); NA (ABG) 135 mmol/L (135-145); TOTAL HEMOGLOBIN 9.2 G/dl (14.0-17.9)
[2019-05-28 10:47] LABS: ABG BASE EXCESS 2.8 mmol/L (-2.0-3.0); ABG HCO3 27.1 mmol/L (22.0-26.0); ABG OXYGEN SATURATION 99.2 % (95-98); ABG PCO2 40.1 mmHg (35.0-45.0); ABG PH 7.447 (7.350-7.450); ABG PO2 236.3 mmHg (60.0-100.0); CL (ABG) 100 mmol/L (99-107); FCOHb 0.5 % (0.5-1.5); FMetHb 0.6 % (0.3-1.12); FO2Hb 98.1 % (94-100); GLUCOSE (ABG) 150 mg/dl (70-104); IONIZED CA (ABG) 1.07 mmol/L (1.03-1.32); K (ABG) 4.3 mmol/L (3.3-5.1); NA (ABG) 135 mmol/L (135-145); TOTAL HEMOGLOBIN 9.1 G/dl (14.0-17.9)
[2019-05-28] MEDS ORDERED: ipratropium/albuterol 3ml nebule IH SCH (11:00)
[2019-05-28 11:10] LABS: ABG BASE EXCESS 4.4 mmol/L (-2.0-3.0); ABG HCO3 28.7 mmol/L (22.0-26.0); ABG OXYGEN SATURATION 99.1 % (95-98); ABG PCO2 41.6 mmHg (35.0-45.0); ABG PH 7.456 (7.350-7.450); ABG PO2 176.4 mmHg (60.0-100.0); CL (ABG) 101 mmol/L (99-107); FCOHb 0.6 % (0.5-1.5); FMetHb 0.5 % (0.3-1.12); GLUCOSE (ABG) 158 mg/dl (70-104); IONIZED CA (ABG) 1.06 mmol/L (1.03-1.32); K (ABG) 4.3 mmol/L (3.3-5.1); NA (ABG) 135 mmol/L (135-145); TOTAL HEMOGLOBIN 9.1 G/dl (14.0-17.9)
[2019-05-28 11:41] LABS: ABG BASE EXCESS 5.1 mmol/L (-2.0-3.0); ABG HCO3 29.3 mmol/L (22.0-26.0); ABG OXYGEN SATURATION 96.9 % (95-98); ABG PCO2 42.1 mmHg (35.0-45.0); ABG PH 7.461 (7.350-7.450); CL (ABG) 101 mmol/L (99-107); FCOHb 0.9 % (0.5-1.5); FMetHb 0.6 % (0.3-1.12); FO2Hb 95.4 % (94-100); GLUCOSE (ABG) 155 mg/dl (70-104); IONIZED CA (ABG) 1.27 mmol/L (1.03-1.32); K (ABG) 4.3 mmol/L (3.3-5.1); NA (ABG) 135 mmol/L (135-145); TOTAL HEMOGLOBIN 8.4 G/dl (14.0-17.9)
[2019-05-28 11:46] LABS: ABG BASE EXCESS VENOUS 5.3 mmol/L; ABG HCO3 VENOUS 30.6 mmol/L; ABG PCO2 VENOUS 49.6 mmHg; ABG PO2 VENOUS 33.3 mmHg; CL (ABG) 100 mmol/L (99-107); FCOHb VENOUS 1.3 %; FHHb VENOUS 39.9 %; FMetHb VENOUS 0.6 %; FO2Hb VENOUS 58.2 %; GLUCOSE (ABG) 160 mg/dl (70-104); IONIZED CA (ABG) 1.29 mmol/L (1.03-1.32); K (ABG) 4.1 mmol/L (3.3-5.1); NA (ABG) 135 mmol/L (135-145); TOTAL HEMOGLOBIN 8.4 G/dl (14.0-17.9)
[2019-05-28] MEDS: K and/or MAG REPLACEMENT MC SCH (11:50)
[2019-05-28] MEDS: furosemide 40mg/4ml inj IV SCH (11:50)
[2019-05-28 12:15] LABS: ABG BASE EXCESS VENOUS 3.9 mmol/L; ABG HCO3 VENOUS 30.4 mmol/L; ABG PCO2 VENOUS 55.5 mmHg; ABG PO2 VENOUS 37.7 mmHg; CL (ABG) 102 mmol/L (99-107); FCOHb VENOUS 1.2 %; FHHb VENOUS 36.9 %; FMetHb VENOUS 0.5 %; FO2Hb VENOUS 61.4 %; GLUCOSE (ABG) 166 mg/dl (70-104); IONIZED CA (ABG) 1.22 mmol/L (1.03-1.32); K (ABG) 3.9 mmol/L (3.3-5.1); NA (ABG) 137 mmol/L (135-145); TOTAL HEMOGLOBIN 10.1 G/dl (14.0-17.9)
[2019-05-28 12:36] LABS: ACT @ 1.70 U 316 SEC (193-297); ACT @ 2.84 U 496 SEC (260-420); BASELINE ACT 142 SEC (101-148)
[2019-05-28 12:36] LABS: ACTIVATED CLOTTING TIME 122 SEC (101-148)
[2019-05-28] MEDS: aspirin 81mg tablet.DR PO SCH (12:50)
[2019-05-28] MEDS: isosorbide dinitrate 30mg tablet PO SCH (12:50)
[2019-05-28] MEDS: docusate sod 100mg capsule PO SCH (12:50)
[2019-05-28] MEDS: pregabalin 75mg capsule PO SCH ×4 (12:50→20:22)
[2019-05-28] MEDS: mupirocin 2% nasal ointment 1gm UD NS SCH ×2 (12:50→20:22)
[2019-05-28] MEDS: carvedilol 6.25mg tablet PO SCH (12:50)
[2019-05-28] MEDS: amiodarone 200mg tablet PO SCH (12:50)
[2019-05-28] MEDS: nicotine 14mg patch - 24hr TD SCH (12:50)
[2019-05-28] MEDS ORDERED: NORepinephrine 8mg/ 250ml NS 250 ML IV PRN (13:14)
[2019-05-28] MEDS ORDERED: nitroGLYCERIN-Tridil 50MG/D5W 250 ML IV PRN (13:14)
[2019-05-28] MEDS ORDERED: niCARDipine-NS 40mg/200ml IVPB 200 ML IV PRN ×2 (13:14→13:43)
[2019-05-28] MEDS ORDERED: metoclopramide 5 mg/ml inj IV PRN (13:15)
[2019-05-28] MEDS ORDERED: albumin (Human) 5% 250ml 250 ML IV PRN (13:15)
[2019-05-28] MEDS ORDERED: normal saline 250ml IV soln 250 ML IV PRN (13:15)
[2019-05-28] MEDS ORDERED: pantoprazole 40 MG vial IV ONE (13:15)
[2019-05-28] MEDS ORDERED: magnesium hydroxide 30ml (MOM) UD suspension PO PRN (13:15)
[2019-05-28] MEDS ORDERED: sodium phosphate inj. 15 MMOL in dextrose 5%-water 150 ML IV PRN (13:15)
[2019-05-28] MEDS ORDERED: magnesium 4gm in 100ml NS 100 ML IV PRN (13:15)
[2019-05-28] MEDS ORDERED: potassium Cl 20 mEq SR tablet PO PRN (13:15)
[2019-05-28] MEDS ORDERED: sodium phosphate inj. 30 MMOL in dextrose 5%-water 250 ML IV PRN (13:15)
[2019-05-28] MEDS ORDERED: acetaminophen 325mg tablet PO PRN (13:15)
[2019-05-28] MEDS ORDERED: ondansetron/PF 4mg/2ml inj IV PRN (13:15)
[2019-05-28] MEDS ORDERED: insulin regular, human inj. 100 UNITS in normal saline 100ml IV soln 100 ML IV SCH ×2 (13:15)
[2019-05-28] MEDS ORDERED: Neutra Phos packet PO PRN (13:15)
--- NOTE | 2019-05-28 13:21 | NUR ---
Received to room 2044, accompanied by MDs and surgical crew. Placed on ventilator, to medical oncologist, arterial line and PA line pressure monitored. Chest tubes to suction at 20 cm. Alfonso cath to gravity drainage. Dressings are dry and intact. See assessment record. All vasoactive drugs are infusing via central line. Addendum: 05/28/19 at 1751 by Carmela Alfonso RN Nela Sanders, anesthesiologist is Kaylynn.
[2019-05-28 13:51] LABS: BASOPHILS # (AUTO) 0.1 X10'3 (0-0.2); BASOPHILS % (AUTO) 0.3 % (0-1); EOSINOPHILS # (AUTO) 0.1 X10'3 (0-0.9); EOSINOPHILS % (AUTO) 0.5 % (0-6); HEMATOCRIT 37.1 % (42.0-52.0); HEMOGLOBIN 11.8 g/dl (14.0-17.9); LYMPHOCYTES # (AUTO) 0.7 X10'3 (1.1-4.8); LYMPHOCYTES % (AUTO) 2.6 % (21-51); MEAN CORPUSCULAR HEMOGLOBIN 26.2 PG (27.0-31.0); MEAN CORPUSCULAR HGB CONC 31.7 g/dL (33.0-36.5); MEAN CORPUSCULAR VOLUME 82.7 FL (78-98); MEAN PLATELET VOLUME 10.5 FL (7.4-10.4); MONOCYTES % (AUTO) 3.3 % (2-12); NEUTROPHILS # (AUTO) 26.9 X10'3 (1.8-7.7); NEUTROPHILS % (AUTO) 93.3 % (42-75); PLATELET COUNT 122 X10'3 (140-440); RED BLOOD COUNT 4.48 X10'6 (4.70-6.10); RED CELL DISTRIBUTION WIDTH 16.8 % (11.5-14.5)
[2019-05-28 13:51] LABS: ABG BASE EXCESS 1.7 mmol/L (-2.0-3.0); ABG HCO3 28.4 mmol/L (22.0-26.0); ABG PCO2 (T) 53.8 mmHg (35.0-45.0); ABG PO2 (T) 78.5 mmHg (83-108); FCOHb 0.8 % (0.5-1.5); FMetHb 0.3 % (0.3-1.12); PEEP 5 cm H2O; RESPIRATORY RATE 12 b/min; RESPIRATORY RATE (OBSERVED) 12 b/min; TIDAL VOLUME 600 mL; TOTAL HEMOGLOBIN 12.7 G/dl (14.0-17.9)
[2019-05-28 13:53] LABS: WHITE BLOOD COUNT 28.8 X10'3 (4.5-11.0)
[2019-05-28 14:08] LABS: PARTIAL THROMBOPLASTIN TIME 34 SECONDS (22-32)
[2019-05-28] MEDS: sodium chloride 0.45% 1,000 ML IV SCH (14:19)
[2019-05-28 14:20] LABS: ALANINE AMINOTRANSFERASE 44 U/L (12-78); ALBUMIN 2.2 G/DL (3.4-5.0); ALBUMIN/GLOBULIN RATIO 1.1 (1.1-1.5); ALKALINE PHOSPHATASE 137 IU/L (46-116); ANION GAP 8 (8-16); ASPARTATE AMINO TRANSFERASE 56 U/L (10-37); BILIRUBIN,TOTAL 1.3 MG/DL (0.1-1.0); BLOOD UREA NITROGEN 27 MG/DL (7-18); BUN/CREATININE RATIO 30.7 (5.4-32.0); CALCIUM 8.2 MG/DL (8.5-10.1); CHLORIDE 110 MMOL/L (99-107); CREATININE 0.88 MG/DL (0.60-1.10); GLUCOSE 150 MG/DL (70-104); MAGNESIUM 2.4 MG/DL (1.5-2.4); PHOSPHORUS 2.7 MG/DL (2.3-4.5); POTASSIUM 3.8 MMOL/L (3.5-5.1); SODIUM 146 MMOL/L (135-145); TOTAL CARBON DIOXIDE 27.8 MMOL/L (24-32); TOTAL PROTEIN 4.2 G/DL (6.4-8.2); eGFR 88 ML/MIN
[2019-05-28] MEDS: DOPamine 400mg/D5W 250ml 250 ML IV PRN (14:20)
[2019-05-28 14:23] LABS: TOTAL CELLS COUNTED 100
[2019-05-28 14:24] LABS: ANISOCYTOSIS 1+; PLATELET ESTIMATE DECREASED
[2019-05-28] MEDS: epiNEPHrine inj 5 MG, calcium chloride inj. 1,000 MG in normal saline 250ml IV soln 250 ML IV SCH (14:29)
[2019-05-28] MEDS: potassium Cl 20mEq/100mL bag 100 ML IV PRN ×2 (15:08→17:17)
[2019-05-28] MEDS: insulin regular, human 100 UNIT in normal saline 100ml IV soln 100 ML IV SCH ×2 (15:13)
[2019-05-28] MEDS: ceFAZolin 1GM/D5W- ADD-VANTAGE 50 ML IV SCH ×2 (16:24→23:46)
[2019-05-28] MEDS: morphine 4 MG/ML inj SYRINge IV PRN ×5 (16:27→22:59)
--- NOTE | 2019-05-28 17:28 | NUR ---
UPdated Dr. Call regarding patient condition, current chest tube output, urine output, last C.I. 1.7, current medicines. He wants albumin to be given, prior discussion when patient arrived from OR is limit fluids. No new orders.
[2019-05-28] MEDS ORDERED: insulin Lispro (HumaLOG) vial - multi-dose SQ SCH (18:00)
--- NOTE | 2019-05-28 18:27 | NUR ---
Problems reprioritized. Patient report given, questions answered & plan of care reviewed with Miladys Schmidt RN.
--- NOTE | 2019-05-28 18:36 | NUR ---
183..Patient in room ICU 2044. I have received report from Adilson ABDUL and had the opportunity to ask questions and assume patient care.
[2019-05-28] MEDS: magnesium 2GM in 50ml NS 50 ML IV PRN (19:05)
[2019-05-28] MEDS ORDERED: docusate sod 100mg capsule PO SCH (20:00)
[2019-05-28 20:11] LABS: BASOPHILS % (AUTO) 0.1 % (0-1); EOSINOPHILS % (AUTO) 0 % (0-6); HEMATOCRIT 35.3 % (42.0-52.0); HEMOGLOBIN 11.1 g/dl (14.0-17.9); LYMPHOCYTES # (AUTO) 0.2 X10'3 (1.1-4.8); LYMPHOCYTES % (AUTO) 1.2 % (21-51); MEAN CORPUSCULAR HGB CONC 31.5 g/dL (33.0-36.5); MEAN CORPUSCULAR VOLUME 82.7 FL (78-98); MEAN PLATELET VOLUME 10.8 FL (7.4-10.4); MONOCYTES # (AUTO) 0.5 X10'3 (0-0.9); MONOCYTES % (AUTO) 3.1 % (2-12); NEUTROPHILS # (AUTO) 16.2 X10'3 (1.8-7.7); NEUTROPHILS % (AUTO) 95.6 % (42-75); PLATELET COUNT 132 X10'3 (140-440); RED BLOOD COUNT 4.27 X10'6 (4.70-6.10); RED CELL DISTRIBUTION WIDTH 16.4 % (11.5-14.5)
[2019-05-28] MEDS: vancomycin/NS 1 GM ADD-VANTAGE 250 ML IV SCH (20:21)
[2019-05-28] MEDS: gabapentin 300mg capsule PO SCH (20:22)
[2019-05-28] MEDS: amitriptyline 50mg tablet PO SCH (20:22)
[2019-05-28 20:24] LABS: ALBUMIN 2.5 G/DL (3.4-5.0); ANION GAP 9 (8-16); BLOOD UREA NITROGEN 27 MG/DL (7-18); BUN/CREATININE RATIO 27.8 (5.4-32.0); CHLORIDE 110 MMOL/L (99-107); CREATININE 0.97 MG/DL (0.60-1.10); GLUCOSE 174 MG/DL (70-104); PHOSPHORUS 2.9 MG/DL (2.3-4.5); POTASSIUM 4.9 MMOL/L (3.5-5.1); SODIUM 146 MMOL/L (135-145); eGFR 79 ML/MIN
[2019-05-28 20:36] LABS: LARGE PLATELETS FEW; PLATELET ESTIMATE DECREASED
--- NOTE | 2019-05-28 21:28 | NUR ---
2000..Assessment as noted, morphine given for pain appears effective, updated, no orders at this time.
[2019-05-29] VITALS (24 sets, daily range): BP systolic 88–129; BP diastolic 42–56
[2019-05-29] MEDS: DOPamine 400mg/D5W 250ml 250 ML IV PRN ×2 (00:37→14:54)
--- NOTE | 2019-05-29 00:56 | NUR ---
0000..Continues to rest quietly, prn morphine remains effective for pain relief, no other changes noted.
[2019-05-29 01:46] LABS: ABG BASE EXCESS 0.1 mmol/L (-2.0-3.0); ABG HCO3 24.9 mmol/L (22.0-26.0); ABG OXYGEN SATURATION 87.7 % (95-98); ABG PCO2 (T) 41.7 mmHg (35.0-45.0); ABG PH (T) 7.395 (7.350-7.450); ABG PO2 (T) 59.3 mmHg (83-108); FMetHb 0.3 % (0.3-1.12); FO2Hb 87.4 % (94-100); PATIENT TEMPERATURE 37.4; PEEP 5 cm H2O; RESPIRATORY RATE 14 b/min; RESPIRATORY RATE (OBSERVED) 14 b/min; TIDAL VOLUME 600 mL; TOTAL HEMOGLOBIN 10.5 G/dl (14.0-17.9)
[2019-05-29] MEDS: morphine 4 MG/ML inj SYRINge IV PRN ×9 (01:57→22:42)
[2019-05-29 02:12] LABS: BASOPHILS % (AUTO) 0.2 % (0-1); EOSINOPHILS % (AUTO) 0 % (0-6); HEMATOCRIT 32.4 % (42.0-52.0); HEMOGLOBIN 10.4 g/dl (14.0-17.9); LYMPHOCYTES # (AUTO) 0.5 X10'3 (1.1-4.8); LYMPHOCYTES % (AUTO) 3.5 % (21-51); MEAN CORPUSCULAR HEMOGLOBIN 26.5 PG (27.0-31.0); MEAN CORPUSCULAR VOLUME 82.7 FL (78-98); MEAN PLATELET VOLUME 10.2 FL (7.4-10.4); MONOCYTES % (AUTO) 6.9 % (2-12); NEUTROPHILS # (AUTO) 13.4 X10'3 (1.8-7.7); NEUTROPHILS % (AUTO) 89.4 % (42-75); PLATELET COUNT 135 X10'3 (140-440); RED BLOOD COUNT 3.92 X10'6 (4.70-6.10); RED CELL DISTRIBUTION WIDTH 16.6 % (11.5-14.5)
--- NOTE | 2019-05-29 02:12 | NUR ---
0200..FiO2 increased to 90%, for pO2 of 59. Morphine given with good effect for incisional pain, no other changes noted.
[2019-05-29 02:28] LABS: PARTIAL THROMBOPLASTIN TIME 29 SECONDS (22-32)
[2019-05-29 02:32] LABS: ALANINE AMINOTRANSFERASE 50 U/L (12-78); ALBUMIN 2.5 G/DL (3.4-5.0); ALBUMIN/GLOBULIN RATIO 1.3 (1.1-1.5); ALKALINE PHOSPHATASE 124 IU/L (46-116); ANION GAP 7 (8-16); ASPARTATE AMINO TRANSFERASE 65 U/L (10-37); BILIRUBIN,TOTAL 0.8 MG/DL (0.1-1.0); BLOOD UREA NITROGEN 31 MG/DL (7-18); BUN/CREATININE RATIO 24.6 (5.4-32.0); CALCIUM 8.5 MG/DL (8.5-10.1); CHLORIDE 111 MMOL/L (99-107); CREATININE 1.26 MG/DL (0.60-1.10); GLUCOSE 171 MG/DL (70-104); MAGNESIUM 2.5 MG/DL (1.5-2.4); PHOSPHORUS 3.9 MG/DL (2.3-4.5); POTASSIUM 4.8 MMOL/L (3.5-5.1); SODIUM 146 MMOL/L (135-145); TOTAL CARBON DIOXIDE 28.1 MMOL/L (24-32); TOTAL PROTEIN 4.5 G/DL (6.4-8.2); eGFR 58 ML/MIN
--- NOTE | 2019-05-29 04:11 | NUR ---
0400..Resting quietly, no changes noted.
--- NOTE | 2019-05-29 05:38 | NUR ---
0540..Per md order, peep increased to 8.
--- NOTE | 2019-05-29 05:58 | NUR ---
0550..Medicated with morphine with good effect, for complaints of pain.
--- NOTE | 2019-05-29 06:15 | NUR ---
Patient in room ICU 2044. I have received report from maintenance technician 2nd shift and had the opportunity to ask questions and assume patient care.
--- NOTE | 2019-05-29 06:20 | NUR ---
0620..Problems reprioritized. Patient report given, questions answered & plan of care reviewed with Gorge ABDUL.
[2019-05-29] MEDS: ipratropium/albuterol 3ml nebule NEB PRN (07:44)
[2019-05-29] MEDS: metoprolol tartrate 12.5mg (1/2 tablet) PO SCH ×2 (08:00→20:00)
[2019-05-29] MEDS ORDERED: aspirin 325mg tablet, delayed-release (Ecotrin) PO SCH (08:00)
[2019-05-29 08:51] LABS: ABG BASE EXCESS -1.3 mmol/L (-2.0-3.0); ABG HCO3 22.8 mmol/L (22.0-26.0); ABG OXYGEN SATURATION 92.2 % (95-98); ABG PO2 (T) 63.8 mmHg (83-108); FCOHb 0.3 % (0.5-1.5); FMetHb 0.2 % (0.3-1.12); FO2Hb 91.7 % (94-100); MINUTE VOLUME 12 L/min; PEEP 8 cm H2O; RESPIRATORY RATE 14 b/min; RESPIRATORY RATE (OBSERVED) 20 b/min; TIDAL VOLUME 600 mL; TOTAL HEMOGLOBIN 10.4 G/dl (14.0-17.9)
[2019-05-29] MEDS: vancomycin/NS 1 GM ADD-VANTAGE 250 ML IV SCH ×2 (09:00→20:39)
[2019-05-29] MEDS: ceFAZolin 1GM/D5W- ADD-VANTAGE 50 ML IV SCH ×2 (09:00→16:12)
[2019-05-29] MEDS: atorvastatin 10mg tablet PO SCH (09:01)
[2019-05-29] MEDS: mupirocin 2% nasal ointment 1gm UD NS SCH ×2 (09:01→20:39)
[2019-05-29] MEDS: gabapentin 300mg capsule PO SCH ×3 (09:01→20:39)
[2019-05-29] MEDS: pregabalin 75mg capsule PO SCH ×4 (09:01→20:39)
[2019-05-29] MEDS: ipratropium/albuterol 3ml nebule NEB SCH ×4 (10:52→23:21)
[2019-05-29] MEDS ORDERED: amiodarone/D5 360MG/200ML BAG 200 ML IV SCH (12:34)
[2019-05-29] MEDS ORDERED: furosemide 40mg/4ml inj IV ONE (12:35)
[2019-05-29] MEDS ORDERED: amiodarone 150mg/dext, iso-os 100 ML IV ONE (12:35)
[2019-05-29] MEDS: amiodarone/D5 360MG/200ML BAG 200 ML IV SCH ×2 (13:13→19:04)
--- NOTE | 2019-05-29 13:40 | NUR ---
reassessment: Pt s/p CABGx4 day one post-op remains intubated. LBM 06/04 w/ colace BID starting today. OG in place. Not to extubate today per MD. TF recs below IF prolonged intubation post-op. Will continue to monitor. Recommendations: 1) upon extubation; advance to heart healthy CHO controlled diet per MD 2) once PO diet s/p extubation: Double eggs QD at breakfast; double protein TID; double oatmeal QD at breakfast with margarine 3) IF OGTF; Vital High Protein at 100ml/hr goal 4) Routine bowel care 5) Wt per rx Addendum: 05/29/19 at [address] Amended: Links added. Addendum: 06/01/19 at [address] *LBM 05/25
[2019-05-29] MEDS: insulin regular, human 100 UNIT in normal saline 100ml IV soln 100 ML IV SCH ×2 (14:14)
[2019-05-29 14:20] LABS: ABG BASE EXCESS -2.7 mmol/L (-2.0-3.0); ABG HCO3 21.5 mmol/L (22.0-26.0); ABG OXYGEN SATURATION 91.3 % (95-98); ABG PCO2 (T) 34.8 mmHg (35.0-45.0); ABG PH (T) 7.409 (7.350-7.450); ABG PO2 (T) 63.5 mmHg (83-108); FMetHb 0.2 % (0.3-1.12); FO2Hb 91.1 % (94-100); MINUTE VOLUME 9 L/min; PEEP 10 cm H2O; RESPIRATORY RATE 14 b/min; RESPIRATORY RATE (OBSERVED) 14 b/min; TIDAL VOLUME 600 mL; TOTAL HEMOGLOBIN 9.6 G/dl (14.0-17.9)
[2019-05-29] MEDS: epiNEPHrine inj 5 MG, calcium chloride inj. 1,000 MG in normal saline 250ml IV soln 250 ML IV SCH (14:54)
[2019-05-29] MEDS: sodium chloride 0.45% 1,000 ML IV SCH (17:38)
--- NOTE | 2019-05-29 18:06 | NUR ---
Problems reprioritized. Patient report given, questions answered & plan of care reviewed with oncoming shift.
--- NOTE | 2019-05-29 18:40 | NUR ---
183..Patient in room ICU 2044. I have received report from Gorge ABDUL and had the opportunity to ask questions and assume patient care.
[2019-05-29] MEDS: amitriptyline 50mg tablet PO SCH (20:39)
[2019-05-29] MEDS: docusate sodium 100mg/10ml UD cup PO SCH (20:39)
--- NOTE | 2019-05-29 21:24 | NUR ---
2000..Morphine given for pain appears effective, assessment as noted.
[2019-05-30] VITALS (30 sets, daily range): BP systolic 90–112; BP diastolic 39–70
[2019-05-30] MEDS: ceFAZolin 1GM/D5W- ADD-VANTAGE 50 ML IV SCH (00:03)
[2019-05-30] MEDS: amiodarone/D5 360MG/200ML BAG 200 ML IV SCH ×4 (00:25→19:17)
[2019-05-30] MEDS: morphine 4 MG/ML inj SYRINge IV PRN ×7 (00:44→22:18)
[2019-05-30 01:19] LABS: BASOPHILS % (AUTO) 0.2 % (0-1); EOSINOPHILS % (AUTO) 0 % (0-6); HEMATOCRIT 27.6 % (42.0-52.0); HEMOGLOBIN 8.8 g/dl (14.0-17.9); LYMPHOCYTES # (AUTO) 1.2 X10'3 (1.1-4.8); LYMPHOCYTES % (AUTO) 5.1 % (21-51); MEAN CORPUSCULAR HEMOGLOBIN 26.1 PG (27.0-31.0); MEAN CORPUSCULAR HGB CONC 31.8 g/dL (33.0-36.5); MEAN CORPUSCULAR VOLUME 82.1 FL (78-98); MEAN PLATELET VOLUME 10.1 FL (7.4-10.4); MONOCYTES # (AUTO) 2.9 X10'3 (0-0.9); MONOCYTES % (AUTO) 12.7 % (2-12); NEUTROPHILS # (AUTO) 18.9 X10'3 (1.8-7.7); PLATELET COUNT 158 X10'3 (140-440); RED BLOOD COUNT 3.37 X10'6 (4.70-6.10); WHITE BLOOD COUNT 23.1 X10'3 (4.5-11.0)
[2019-05-30 01:29] LABS: ALBUMIN 2.3 G/DL (3.4-5.0); ANION GAP 8 (8-16); BLOOD UREA NITROGEN 47 MG/DL (7-18); BUN/CREATININE RATIO 29.2 (5.4-32.0); CALCIUM 8.4 MG/DL (8.5-10.1); CHLORIDE 108 MMOL/L (99-107); CREATININE 1.61 MG/DL (0.60-1.10); GLUCOSE 230 MG/DL (70-104); MAGNESIUM 2.2 MG/DL (1.5-2.4); PHOSPHORUS 4.6 MG/DL (2.3-4.5); POTASSIUM 5.7 MMOL/L (3.5-5.1); SODIUM 143 MMOL/L (135-145); TOTAL CARBON DIOXIDE 27.5 MMOL/L (24-32); eGFR 44 ML/MIN
--- NOTE | 2019-05-30 01:33 | NUR ---
0100..No changes noted, morphine given for pain with good effect, no other changes noted.
[2019-05-30] MEDS: ipratropium/albuterol 3ml nebule NEB SCH ×6 (02:55→23:07)
[2019-05-30] MEDS: insulin regular, human 100 UNIT in normal saline 100ml IV soln 100 ML IV SCH ×8 (03:06→20:25)
[2019-05-30] MEDS: DOPamine 400mg/D5W 250ml 250 ML IV PRN (03:21)
[2019-05-30 03:41] LABS: ABG BASE EXCESS 0.5 mmol/L (-2.0-3.0); ABG HCO3 25.2 mmol/L (22.0-26.0); ABG OXYGEN SATURATION 93.6 % (95-98); ABG PCO2 (T) 42.3 mmHg (35.0-45.0); ABG PH (T) 7.396 (7.350-7.450); ABG PO2 (T) 75.9 mmHg (83-108); FCOHb 0.1 % (0.5-1.5); FMetHb 0.2 % (0.3-1.12); FO2Hb 93.3 % (94-100); MINUTE VOLUME 9 L/min; PATIENT TEMPERATURE 37.8; PEEP 10 cm H2O; RESPIRATORY RATE 14 b/min; RESPIRATORY RATE (OBSERVED) 14 b/min; TIDAL VOLUME 600 mL; TOTAL HEMOGLOBIN 9.5 G/dl (14.0-17.9)
--- NOTE | 2019-05-30 04:30 | NUR ---
0400..No changes noted.
--- NOTE | 2019-05-30 06:15 | NUR ---
Patient in room ICU 2044. I have received report from retail beauty specialist and had the opportunity to ask questions and assume patient care.
--- NOTE | 2019-05-30 06:18 | NUR ---
0615..Problems reprioritized. Patient report given, questions answered & plan of care reviewed with Gorge ABDUL.
[2019-05-30] MEDS ORDERED: NORepinephrine 8mg/ 250ml NS 250 ML IV ONE (07:49)
[2019-05-30] MEDS: metoprolol tartrate 12.5mg (1/2 tablet) PO SCH ×2 (08:00→19:36)
[2019-05-30] MEDS: docusate sodium 100mg/10ml UD cup PO SCH ×2 (08:08→19:36)
[2019-05-30] MEDS: aspirin 81mg tab.chew PO SCH (08:08)
[2019-05-30] MEDS: gabapentin 300mg capsule PO SCH ×2 (08:09→13:00)
[2019-05-30] MEDS: pantoprazole 40mg Tablet.DR PO SCH (08:09)
[2019-05-30] MEDS: atorvastatin 10mg tablet PO SCH (08:09)
[2019-05-30] MEDS: pregabalin 75mg capsule PO SCH ×4 (08:09→19:17)
[2019-05-30] MEDS: mupirocin 2% nasal ointment 1gm UD NS SCH (08:09)
[2019-05-30] MEDS: NORepinephrine 8mg/ 250ml NS 250 ML IV SCH (08:17)
[2019-05-30 10:01] LABS: ABG BASE EXCESS 0.5 mmol/L (-2.0-3.0); ABG HCO3 24.8 mmol/L (22.0-26.0); ABG OXYGEN SATURATION 94.6 % (95-98); ABG PCO2 (T) 39.2 mmHg (35.0-45.0); ABG PH (T) 7.421 (7.350-7.450); ABG PO2 (T) 81.5 mmHg (83-108); FCOHb 0.3 % (0.5-1.5); FMetHb 0.3 % (0.3-1.12); PATIENT TEMPERATURE 37.6; PEEP 8 cm H2O; RESPIRATORY RATE 14 b/min; RESPIRATORY RATE (OBSERVED) 14 b/min; TIDAL VOLUME 600 mL; TOTAL HEMOGLOBIN 9.1 G/dl (14.0-17.9)
[2019-05-30 11:06] LABS: ABG BASE EXCESS -0.4 mmol/L (-2.0-3.0); ABG HCO3 23.4 mmol/L (22.0-26.0); ABG OXYGEN SATURATION 95.9 % (95-98); ABG PCO2 (T) 35.6 mmHg (35.0-45.0); ABG PH (T) 7.438 (7.350-7.450); ABG PO2 (T) 87.9 mmHg (83-108); FCOHb 0.3 % (0.5-1.5); FMetHb 0.2 % (0.3-1.12); FO2Hb 95.4 % (94-100); MINUTE VOLUME 10 L/min; PATIENT TEMPERATURE 37.5; PEEP 5 cm H2O; RESPIRATORY RATE 14 b/min; RESPIRATORY RATE (OBSERVED) 19 b/min; TIDAL VOLUME 600 mL; TOTAL HEMOGLOBIN 9.1 G/dl (14.0-17.9)
[2019-05-30 17:29] LABS: BASOPHILS % (AUTO) 0.1 % (0-1); EOSINOPHILS % (AUTO) 0.1 % (0-6); HEMATOCRIT 24.5 % (42.0-52.0); HEMOGLOBIN 7.8 g/dl (14.0-17.9); MEAN CORPUSCULAR HEMOGLOBIN 26.2 PG (27.0-31.0); MEAN CORPUSCULAR HGB CONC 31.7 g/dL (33.0-36.5); MEAN CORPUSCULAR VOLUME 82.8 FL (78-98); MEAN PLATELET VOLUME 9.4 FL (7.4-10.4); MONOCYTES # (AUTO) 3.1 X10'3 (0-0.9); MONOCYTES % (AUTO) 15.9 % (2-12); NEUTROPHILS # (AUTO) 15.6 X10'3 (1.8-7.7); NEUTROPHILS % (AUTO) 78.9 % (42-75); PLATELET COUNT 133 X10'3 (140-440); RED BLOOD COUNT 2.96 X10'6 (4.70-6.10); RED CELL DISTRIBUTION WIDTH 16.7 % (11.5-14.5); WHITE BLOOD COUNT 19.8 X10'3 (4.5-11.0)
[2019-05-30 17:41] LABS: PARTIAL THROMBOPLASTIN TIME 28 SECONDS (22-32)
[2019-05-30 17:49] LABS: ALANINE AMINOTRANSFERASE 41 U/L (12-78); ALBUMIN 2.4 G/DL (3.4-5.0); ALBUMIN/GLOBULIN RATIO 1.1 (1.1-1.5); ALKALINE PHOSPHATASE 107 IU/L (46-116); ANION GAP 5 (8-16); ASPARTATE AMINO TRANSFERASE 40 U/L (10-37); BILIRUBIN,TOTAL 0.6 MG/DL (0.1-1.0); BLOOD UREA NITROGEN 55 MG/DL (7-18); BUN/CREATININE RATIO 31.8 (5.4-32.0); CALCIUM 8.5 MG/DL (8.5-10.1); CHLORIDE 110 MMOL/L (99-107); CREATININE 1.73 MG/DL (0.60-1.10); GLUCOSE 70 MG/DL (70-104); SODIUM 146 MMOL/L (135-145); TOTAL CARBON DIOXIDE 30.9 MMOL/L (24-32); TOTAL PROTEIN 4.6 G/DL (6.4-8.2); eGFR 40 ML/MIN
[2019-05-30 17:56] LABS: TOTAL CELLS COUNTED 100
[2019-05-30 17:57] LABS: ANISOCYTOSIS 1+; HYPOCHROMASIA 1+; PLATELET ESTIMATE DECREASED; POLYCHROMASIA 1+
[2019-05-30] MEDS: dextrose 50%-water 50ml dispensing syringe IV PRN (18:06)
--- NOTE | 2019-05-30 18:15 | NUR ---
Problems reprioritized. Patient report given, questions answered & plan of care reviewed with oncoming shift.
--- NOTE | 2019-05-30 18:32 | NUR ---
183..Patient in room ICU 2044. I have received report from Edgard Sauer RN and had the opportunity to ask questions and assume patient care.
[2019-05-30] MEDS: HYDROcodone/acetaminophen 10/325mg tab PO PRN (19:17)
[2019-05-30] MEDS: amitriptyline 50mg tablet PO SCH (19:17)
[2019-05-30] MEDS: sodium chloride 0.45% 1,000 ML IV SCH (20:21)
--- NOTE | 2019-05-30 20:31 | NUR ---
1999..Assessment as noted, norco effective for pain relief, no other changes noted.
--- NOTE | 2019-05-30 21:24 | NUR ---
2119..As per orders, one unit PRBC infused with no reactions noted,
--- NOTE | 2019-05-30 23:29 | NUR ---
2315..Morphine given for pain effective for pain relief, per pt statement, "I feel better.", no other changes noted.
[2019-05-31] VITALS (24 sets, daily range): BP systolic 86–127; BP diastolic 44–72
[2019-05-31] MEDS: morphine 4 MG/ML inj SYRINge IV PRN ×3 (00:26→23:14)
[2019-05-31] MEDS: amiodarone/D5 360MG/200ML BAG 200 ML IV SCH ×2 (00:26→07:16)
--- NOTE | 2019-05-31 00:27 | NUR ---
0025..Complaining of incisional pain, morphine given with good effect, no other changes noted.
[2019-05-31 01:56] LABS: BASOPHILS % (AUTO) 0.1 % (0-1); EOSINOPHILS % (AUTO) 0 % (0-6); HEMATOCRIT 27.5 % (42.0-52.0); HEMOGLOBIN 8.8 g/dl (14.0-17.9); LYMPHOCYTES # (AUTO) 0.6 X10'3 (1.1-4.8); LYMPHOCYTES % (AUTO) 2.6 % (21-51); MEAN CORPUSCULAR HEMOGLOBIN 26.6 PG (27.0-31.0); MEAN CORPUSCULAR HGB CONC 32.1 g/dL (33.0-36.5); MEAN CORPUSCULAR VOLUME 82.9 FL (78-98); MEAN PLATELET VOLUME 10.1 FL (7.4-10.4); MONOCYTES # (AUTO) 2.5 X10'3 (0-0.9); MONOCYTES % (AUTO) 11.5 % (2-12); NEUTROPHILS # (AUTO) 18.7 X10'3 (1.8-7.7); NEUTROPHILS % (AUTO) 85.8 % (42-75); PLATELET COUNT 137 X10'3 (140-440); RED BLOOD COUNT 3.32 X10'6 (4.70-6.10); RED CELL DISTRIBUTION WIDTH 16.6 % (11.5-14.5); WHITE BLOOD COUNT 21.8 X10'3 (4.5-11.0)
[2019-05-31 02:07] LABS: ALBUMIN 2.5 G/DL (3.4-5.0); ANION GAP 9 (8-16); BLOOD UREA NITROGEN 53 MG/DL (7-18); BUN/CREATININE RATIO 33.1 (5.4-32.0); CALCIUM 8.2 MG/DL (8.5-10.1); CHLORIDE 107 MMOL/L (99-107); GLUCOSE 145 MG/DL (70-104); PHOSPHORUS 4.3 MG/DL (2.3-4.5); SODIUM 143 MMOL/L (135-145); TOTAL CARBON DIOXIDE 27.5 MMOL/L (24-32); eGFR 44 ML/MIN
[2019-05-31] MEDS: ipratropium/albuterol 3ml nebule NEB SCH ×6 (02:40→23:18)
[2019-05-31] MEDS: HYDROcodone/acetaminophen 10/325mg tab PO PRN (05:23)
--- NOTE | 2019-05-31 06:05 | NUR ---
0600..Chester given for complaints of incisional pain , effect for pain relief. Levophed weaned off, BP stable.
--- NOTE | 2019-05-31 06:15 | NUR ---
Patient in room ICU 2044. I have received report from INSPECTOR CASING and had the opportunity to ask questions and assume patient care.
--- NOTE | 2019-05-31 06:16 | NUR ---
0615..Problems reprioritized. Patient report given, questions answered & plan of care reviewed with Gorge ABDUL.
[2019-05-31] MEDS ORDERED: dextrose ORAL solution 15 GM/59 ML bottle PO PRN ×2 (07:15)
[2019-05-31] MEDS ORDERED: glucagon, human recombinant 1mg kit SUBCUT PRN (07:15)
[2019-05-31] MEDS ORDERED: dextrose 50%-water 50ml dispensing syringe IV PRN (07:15)
[2019-05-31] MEDS: metoprolol tartrate 12.5mg (1/2 tablet) PO SCH (08:00)
[2019-05-31] MEDS: pantoprazole 40mg Tablet.DR PO SCH (08:10)
[2019-05-31] MEDS: docusate sodium 100mg/10ml UD cup PO SCH ×2 (08:10→19:56)
[2019-05-31] MEDS: pregabalin 75mg capsule PO SCH ×4 (08:10→20:47)
[2019-05-31] MEDS: atorvastatin 10mg tablet PO SCH (08:10)
[2019-05-31] MEDS: aspirin 81mg tab.chew PO SCH (08:11)
[2019-05-31] MEDS: insulin Lispro (HumaLOG) vial - multi-dose SQ SCH ×3 (09:02→18:58)
[2019-05-31] MEDS: carVEDilol 3.125mg tablet PO SCH ×2 (11:55→19:57)
--- NOTE | 2019-05-31 18:03 | NUR ---
Problems reprioritized. Patient report given, questions answered & plan of care reviewed with ONCOMING SHIFT.
--- NOTE | 2019-05-31 18:30 | NUR ---
Patient in room ICU 2044. I have received report from Julianna ABDUL and had the opportunity to ask questions and assume patient care.
[2019-05-31] MEDS: amiodarone 200mg tablet PO SCH (19:56)
[2019-05-31] MEDS: amitriptyline 50mg tablet PO SCH (20:47)
[2019-05-31] MEDS ORDERED: insulin glargine (Lantus) pen - multi-dose SQ SCH (21:00)
[2019-05-31] MEDS: dextrose 50%-water 50ml dispensing syringe IV PRN (23:03)
--- NOTE | 2019-05-31 23:35 | NUR ---
Pt having bursts of SVT. Labs drawn to check electrolytes. BG checked, value 64, Dextrose given with an increase of BG to 205. Pt states he feels a little sweaty and heavy in the chest. Breathing treatment due and morphine given for chest discomfort.
[2019-05-31 23:47] LABS: ALANINE AMINOTRANSFERASE 42 U/L (12-78); ALBUMIN 2.5 G/DL (3.4-5.0); ALKALINE PHOSPHATASE 117 IU/L (46-116); ANION GAP 4 (8-16); ASPARTATE AMINO TRANSFERASE 37 U/L (10-37); BILIRUBIN,TOTAL 0.6 MG/DL (0.1-1.0); BLOOD UREA NITROGEN 51 MG/DL (7-18); CALCIUM 8.1 MG/DL (8.5-10.1); CHLORIDE 107 MMOL/L (99-107); CREATININE 1.38 MG/DL (0.60-1.10); GLUCOSE 61 MG/DL (70-104); MAGNESIUM 2.1 MG/DL (1.5-2.4); PHOSPHORUS 3.7 MG/DL (2.3-4.5); POTASSIUM 4.3 MMOL/L (3.5-5.1); SODIUM 141 MMOL/L (135-145); TOTAL CARBON DIOXIDE 29.6 MMOL/L (24-32); TOTAL PROTEIN 4.9 G/DL (6.4-8.2); eGFR 52 ML/MIN
[2019-06-01] VITALS (24 sets, daily range): BP systolic 86–121; BP diastolic 44–73
[2019-06-01] MEDS: potassium Cl 20mEq/100mL bag 100 ML IV PRN ×2 (00:17→01:06)
--- NOTE | 2019-06-01 00:38 | NUR ---
Replacing Mg and K, Jakub aware of SVT. No new orders, continue to monitor rhythms.
[2019-06-01] MEDS: dextrose 50%-water 50ml dispensing syringe IV PRN (00:55)
--- NOTE | 2019-06-01 01:11 | NUR ---
Blood glucose rechecked, 53, treated and increased to 143.
--- NOTE | 2019-06-01 02:15 | NUR ---
Less incidences of SVT since last D50 treatment. 0200 BG 79, pt awake and given food.
[2019-06-01] MEDS: HYDROcodone/acetaminophen 10/325mg tab PO PRN ×4 (02:29→19:20)
[2019-06-01] MEDS: ipratropium/albuterol 3ml nebule NEB SCH ×6 (02:52→23:17)
[2019-06-01 03:44] LABS: ALBUMIN 2.4 G/DL (3.4-5.0); ANION GAP 5 (8-16); BLOOD UREA NITROGEN 49 MG/DL (7-18); BUN/CREATININE RATIO 38.6 (5.4-32.0); CALCIUM 7.7 MG/DL (8.5-10.1); CHLORIDE 104 MMOL/L (99-107); CREATININE 1.27 MG/DL (0.60-1.10); GLUCOSE 92 MG/DL (70-104); MAGNESIUM 2.5 MG/DL (1.5-2.4); PHOSPHORUS 3.8 MG/DL (2.3-4.5); POTASSIUM 5.1 MMOL/L (3.5-5.1); SODIUM 138 MMOL/L (135-145); TOTAL CARBON DIOXIDE 29.4 MMOL/L (24-32); eGFR 58 ML/MIN
[2019-06-01 03:51] LABS: BASOPHILS % (AUTO) 0.1 % (0-1); EOSINOPHILS # (AUTO) 0.1 X10'3 (0-0.9); EOSINOPHILS % (AUTO) 0.6 % (0-6); HEMATOCRIT 25.5 % (42.0-52.0); HEMOGLOBIN 8.2 g/dl (14.0-17.9); LYMPHOCYTES # (AUTO) 0.5 X10'3 (1.1-4.8); LYMPHOCYTES % (AUTO) 3.8 % (21-51); MEAN CORPUSCULAR HEMOGLOBIN 26.7 PG (27.0-31.0); MEAN CORPUSCULAR VOLUME 83.5 FL (78-98); MEAN PLATELET VOLUME 10.1 FL (7.4-10.4); MONOCYTES # (AUTO) 1.6 X10'3 (0-0.9); MONOCYTES % (AUTO) 11.9 % (2-12); NEUTROPHILS # (AUTO) 11.6 X10'3 (1.8-7.7); NEUTROPHILS % (AUTO) 83.6 % (42-75); PLATELET COUNT 136 X10'3 (140-440); RED BLOOD COUNT 3.05 X10'6 (4.70-6.10); RED CELL DISTRIBUTION WIDTH 16.7 % (11.5-14.5); WHITE BLOOD COUNT 13.9 X10'3 (4.5-11.0)
[2019-06-01] MEDS: epiNEPHrine inj 5 MG, calcium chloride inj. 1,000 MG in normal saline 250ml IV soln 250 ML IV SCH (05:35)
--- NOTE | 2019-06-01 06:15 | NUR ---
Patient in room ICU 2044. I have received report from material handler 2nd shift and had the opportunity to ask questions and assume patient care.
--- NOTE | 2019-06-01 06:25 | NUR ---
Student documentation: I have reviewed and agree with all interventions, assessments performed and documented by Salbador. Student Medication Administration: For this medication-pass time frame, all medication were reviewed, dispensed, administered and documented per hospital policy by Salbador. Problems reprioritized. Patient report given, questions answered & plan of care reviewed with Julianna ABDUL.
[2019-06-01] MEDS: NORepinephrine 8mg/ 250ml NS 250 ML IV SCH (08:10)
[2019-06-01] MEDS: carVEDilol 3.125mg tablet PO SCH (08:21)
[2019-06-01] MEDS: pregabalin 75mg capsule PO SCH ×4 (08:21→21:18)
[2019-06-01] MEDS: atorvastatin 10mg tablet PO SCH (08:21)
[2019-06-01] MEDS: aspirin 81mg tab.chew PO SCH (08:21)
[2019-06-01] MEDS: amiodarone 200mg tablet PO SCH (08:21)
[2019-06-01] MEDS: pantoprazole 40mg Tablet.DR PO SCH (08:21)
[2019-06-01] MEDS: docusate sod 100mg capsule PO SCH ×2 (08:22→19:43)
[2019-06-01] MEDS ORDERED: calcium chloride inj. 1,000 MG in normal saline 100ml IV soln 90 ML IV ONE (08:25)
[2019-06-01] MEDS ORDERED: furosemide 20 MG/2 ML vial IV ONE (08:45)
[2019-06-01] MEDS ORDERED: insulin glargine (Lantus) pen - multi-dose SQ SCH (09:00)
[2019-06-01] MEDS: insulin glargine (Lantus) pen - multi-dose SQ SCH (09:01)
[2019-06-01] MEDS: insulin Lispro (HumaLOG) vial - multi-dose SQ SCH ×3 (09:05→20:07)
[2019-06-01] MEDS ORDERED: carVEDilol 3.125mg tablet PO ONE (09:15)
--- NOTE | 2019-06-01 11:01 | NUR ---
F/u: Pt seen by RD for written/verbal CABG/HH diet eds w/ RD contact information provided. Pt very drosy during RD visit; eds left at bedside and will need reinforcement prior to d/c once more appropriate. LBM 05/25 receiving colace BID post-op. PO 100% NCS meals meeting needs. Will continue to monitor. Recommendations: 1) advance to heart healthy CHO controlled diet per MD 2) Double eggs QD at breakfast; double protein TIDWM 3) Routine bowel care 4) CABG/HH ed reinforcement once more appropriate prior to d/c 5) Wt per rx Addendum: 06/01/19 at [address] Amended: Links added.
[2019-06-01] MEDS ORDERED: amiodarone 150mg/dext, iso-os 100 ML IV ONE ×2 (11:15→11:20)
--- NOTE | 2019-06-01 11:20 | NUR ---
runs of V-tac noted Dr Call called orders received.
[2019-06-01] MEDS: amiodarone/D5 360MG/200ML BAG 200 ML IV SCH ×3 (11:22→23:27)
[2019-06-01 11:58] LABS: MAGNESIUM 2.2 MG/DL (1.5-2.4); POTASSIUM 4.5 MMOL/L (3.5-5.1)
[2019-06-01] MEDS: magnesium 2GM in 50ml NS 50 ML IV PRN ×2 (12:34)
[2019-06-01] MEDS: morphine 4 MG/ML inj SYRINge IV PRN ×2 (16:11→23:19)
--- NOTE | 2019-06-01 18:03 | NUR ---
Problems reprioritized. Patient report given, questions answered & plan of care reviewed with oncoming shift.
--- NOTE | 2019-06-01 18:05 | NUR ---
Patient in room ICU 2044. I have received report from Edgard Sauer RN and had the opportunity to ask questions and assume patient care. Pt received awake alert & oriented sitting up in chair eating dinner. On Oxygen at 2L NC with oxygen saturation 97 %. Mediastinal chest tubes x2 drain to oasis Antruim connected to 20 cm suction. Drainage is blood tinged. Rhythm is sinus & pt is on amiodarone drip @ 0.5mg/min. Right IJ quad lumen central line is transduced via distal port. Proximal port with IVF. two remaining ports are saline locked. right leg with vito wrap. Pt wishes to not be disturbed at this time so he can finish his meal.
--- NOTE | 2019-06-01 19:35 | NUR ---
Assisted back to bed. Slightly unsteady utilizing chest pillow to splint chest incision. Does well in standing & taking a few steps back to bed. SOB with activity, remains on oxygen at 2L NC.
[2019-06-01] MEDS: carvedilol 6.25mg tablet PO SCH (21:00)
[2019-06-01] MEDS: amitriptyline 50mg tablet PO SCH (21:18)
--- NOTE | 2019-06-01 22:45 | NUR ---
Up to BSC. Bowels moved, flatus passed. Moderate brown sized nuggets passed.
[2019-06-02] VITALS (24 sets, daily range): BP systolic 95–141; BP diastolic 46–88
--- NOTE | 2019-06-02 00:30 | NUR ---
Assisted up to BSC, bowels moved. 3 small brown nuggets passed.
[2019-06-02] MEDS: dextrose 50%-water 50ml dispensing syringe IV PRN ×2 (02:04→04:17)
[2019-06-02] MEDS: HYDROcodone/acetaminophen 10/325mg tab PO PRN ×3 (02:26→13:54)
[2019-06-02 03:03] LABS: HEMATOCRIT 27.1 % (42.0-52.0); HEMOGLOBIN 8.7 g/dl (14.0-17.9); MEAN CORPUSCULAR HGB CONC 32.2 g/dL (33.0-36.5); MEAN CORPUSCULAR VOLUME 83.9 FL (78-98); MEAN PLATELET VOLUME 10.1 FL (7.4-10.4); PLATELET COUNT 167 X10'3 (140-440); RED BLOOD COUNT 3.23 X10'6 (4.70-6.10); RED CELL DISTRIBUTION WIDTH 17.3 % (11.5-14.5); WHITE BLOOD COUNT 12.5 X10'3 (4.5-11.0)
[2019-06-02] MEDS: ipratropium/albuterol 3ml nebule NEB SCH ×6 (03:22→23:31)
[2019-06-02 03:28] LABS: ALBUMIN 2.4 G/DL (3.4-5.0); ANION GAP 7 (8-16); BLOOD UREA NITROGEN 49 MG/DL (7-18); BUN/CREATININE RATIO 37.1 (5.4-32.0); CHLORIDE 103 MMOL/L (99-107); CREATININE 1.32 MG/DL (0.60-1.10); GLUCOSE 93 MG/DL (70-104); POTASSIUM 4.8 MMOL/L (3.5-5.1); SODIUM 137 MMOL/L (135-145); TOTAL CARBON DIOXIDE 27.5 MMOL/L (24-32); eGFR 55 ML/MIN
[2019-06-02] MEDS: amiodarone/D5 360MG/200ML BAG 200 ML IV SCH ×2 (05:21→11:35)
[2019-06-02 05:46] LABS: MAGNESIUM 2.1 MG/DL (1.5-2.4); PHOSPHORUS 4.5 MG/DL (2.3-4.5)
--- NOTE | 2019-06-02 06:25 | NUR ---
Patient in room ICU 2044. I have received report from Maria E ABDUL and had the opportunity to ask questions and assume patient care.
--- NOTE | 2019-06-02 06:42 | NUR ---
Problems reprioritized. Patient report given, questions answered & plan of care reviewed with Aimee ABDUL.
--- NOTE | 2019-06-02 08:10 | NUR ---
Initially noted Blood Glucose at 44, recheck at 57, will administer 2 glucose shots, Made Ankit WOLFE aware of this.
--- NOTE | 2019-06-02 08:30 | NUR ---
Recheck blood sugar via arterial BS 123. No insulin administered due to patient's critical low blood sugars.
[2019-06-02] MEDS: pantoprazole 40mg Tablet.DR PO SCH (08:50)
[2019-06-02] MEDS: carvedilol 6.25mg tablet PO SCH ×2 (08:51→19:20)
[2019-06-02] MEDS: aspirin 81mg tab.chew PO SCH (08:51)
[2019-06-02] MEDS: docusate sod 100mg capsule PO SCH ×2 (08:51→19:20)
[2019-06-02] MEDS: amiodarone 200mg tablet PO SCH ×3 (08:51→21:05)
[2019-06-02] MEDS: furosemide 40mg tablet PO SCH ×2 (08:52→19:20)
[2019-06-02] MEDS: pregabalin 75mg capsule PO SCH ×4 (08:52→21:05)
[2019-06-02] MEDS: atorvastatin 10mg tablet PO SCH (08:52)
[2019-06-02] MEDS: insulin glargine (Lantus) pen - multi-dose SQ SCH (09:00)
--- NOTE | 2019-06-02 10:10 | NUR ---
Dr. Call ordered po Amio to be given this am, waited one hour then stopped Amio drip.
--- NOTE | 2019-06-02 10:15 | NUR ---
Patient refused am walk with P.T. due to just having eaten his breakfast.
--- NOTE | 2019-06-02 11:55 | NUR ---
Spoke with YANETH Pham, okay to discontinue Lantus 20 unit and continue sliding scale due to critical low blood sugars.
--- NOTE | 2019-06-02 13:30 | NUR ---
Walked with patient 150 ft per P.T., discussed with P.T. how patient is more drowsy today due to [place] administration.
[2019-06-02] MEDS: insulin Lispro (HumaLOG) vial - multi-dose SQ SCH ×2 (13:49→19:19)
--- NOTE | 2019-06-02 15:40 | NUR ---
RT at bedside, BP and HR tolerating well since AMIO drip discontinued.
--- NOTE | 2019-06-02 16:47 | NUR ---
Called Ankit WOLFE to clarify if he's wanting CVL removed, also requested additional bowel care orders- received mag citrate 1/2 bottle x 1. Will removed lines and prep patient for noc shift.
[2019-06-02] MEDS ORDERED: magnesium citrate 296ml oral solution PO ONE (16:50)
[2019-06-02] MEDS ORDERED: magnesium citrate 296ml oral solution PO PRN (17:20)
--- NOTE | 2019-06-02 18:22 | NUR ---
Problems reprioritized. Patient report given, questions answered & plan of care reviewed with Maria E ABDUL.
--- NOTE | 2019-06-02 18:30 | NUR ---
Patient in room ICU 2044. I have received report from Aimee ABDUL and had the opportunity to ask questions and assume patient care.
--- NOTE | 2019-06-02 19:30 | NUR ---
Pt went from chair to BSC. Large amount formed soft brown stool passed. Mary care rendered. Pt assisted back to bed. SOB with activity,able to bear weight & take several steps back to bed.
[2019-06-02] MEDS: amitriptyline 50mg tablet PO SCH (21:05)
--- NOTE | 2019-06-02 23:00 | NUR ---
Assisted up to edge of bed per request. Utilized chest pillow with activity. Tolerates activity well.
--- NOTE | 2019-06-02 23:53 | NUR ---
Assisted back into bed, repositioned toward HOB. Refuses medication for pain. Patient utilizes chest pillow to support midline chest incision during activity.
[2019-06-03] VITALS (16 sets, daily range): BP systolic 104–139; BP diastolic 45–88
[2019-06-03] MEDS: ipratropium/albuterol 3ml nebule NEB SCH ×6 (03:02→23:00)
[2019-06-03 05:04] LABS: BASOPHILS % (AUTO) 0.2 % (0-1); EOSINOPHILS # (AUTO) 0.5 X10'3 (0-0.9); EOSINOPHILS % (AUTO) 4.2 % (0-6); HEMATOCRIT 28.8 % (42.0-52.0); HEMOGLOBIN 9.4 g/dl (14.0-17.9); LYMPHOCYTES # (AUTO) 0.7 X10'3 (1.1-4.8); LYMPHOCYTES % (AUTO) 6.1 % (21-51); MEAN CORPUSCULAR HEMOGLOBIN 27.2 PG (27.0-31.0); MEAN CORPUSCULAR HGB CONC 32.6 g/dL (33.0-36.5); MEAN CORPUSCULAR VOLUME 83.4 FL (78-98); MEAN PLATELET VOLUME 10.3 FL (7.4-10.4); MONOCYTES # (AUTO) 1.7 X10'3 (0-0.9); MONOCYTES % (AUTO) 13.6 % (2-12); NEUTROPHILS # (AUTO) 9.3 X10'3 (1.8-7.7); NEUTROPHILS % (AUTO) 75.9 % (42-75); PLATELET COUNT 166 X10'3 (140-440); RED BLOOD COUNT 3.45 X10'6 (4.70-6.10); WHITE BLOOD COUNT 12.2 X10'3 (4.5-11.0)
[2019-06-03 05:21] LABS: ALANINE AMINOTRANSFERASE 34 U/L (12-78); ALBUMIN 2.5 G/DL (3.4-5.0); ALBUMIN/GLOBULIN RATIO 0.8 (1.1-1.5); ALKALINE PHOSPHATASE 157 IU/L (46-116); ANION GAP 7 (8-16); ASPARTATE AMINO TRANSFERASE 23 U/L (10-37); BILIRUBIN,TOTAL 0.8 MG/DL (0.1-1.0); BLOOD UREA NITROGEN 41 MG/DL (7-18); BUN/CREATININE RATIO 35.3 (5.4-32.0); CALCIUM 8.4 MG/DL (8.5-10.1); CHLORIDE 102 MMOL/L (99-107); CREATININE 1.16 MG/DL (0.60-1.10); GLUCOSE 159 MG/DL (70-104); MAGNESIUM 2.1 MG/DL (1.5-2.4); PHOSPHORUS 3.5 MG/DL (2.3-4.5); POTASSIUM 4.7 MMOL/L (3.5-5.1); SODIUM 137 MMOL/L (135-145); TOTAL CARBON DIOXIDE 28.1 MMOL/L (24-32); TOTAL PROTEIN 5.6 G/DL (6.4-8.2); eGFR 64 ML/MIN
--- NOTE | 2019-06-03 06:42 | NUR ---
Patient in room ICU 2044. I have received report from Maria E ABDUL and had the opportunity to ask questions and assume patient care. Patient laying in bed watching TV, Maria E Horan/Viki Bedoya upper extended line saline locked, wound vac to mid line incision, no leaking noted, vital signs stable will contiune to monitor
--- NOTE | 2019-06-03 07:49 | NUR ---
Pt only tolerates 2 sets of EZ PaP Addendum: 06/03/19 at 0750 by Nika Martin RT Amended: Links added.
[2019-06-03] MEDS ORDERED: magnesium 4gm in 100ml NS 100 ML IV PRN ×2 (08:00→08:15)
[2019-06-03] MEDS: docusate sod 100mg capsule PO SCH ×2 (08:00→21:29)
[2019-06-03] MEDS ORDERED: potassium Cl 20 mEq SR tablet PO PRN ×4 (08:00→08:15)
[2019-06-03] MEDS ORDERED: potassium Cl 20 mEq SR tablet PO SCH (08:00)
[2019-06-03] MEDS ORDERED: K and/or MAG REPLACEMENT MC SCH (08:00)
[2019-06-03] MEDS ORDERED: magnesium Cl slow-release 64mg tablet PO SCH (08:00)
[2019-06-03] MEDS ORDERED: magnesium Cl slow-release 64mg tablet PO PRN ×2 (08:00→08:15)
[2019-06-03] MEDS ORDERED: magnesium 2GM in 50ml NS 50 ML IV PRN ×2 (08:00→08:15)
[2019-06-03] MEDS ORDERED: potassium CL 10mEq/100ml bag 100 ML IV PRN ×4 (08:00→08:15)
[2019-06-03] MEDS: pregabalin 75mg capsule PO SCH ×4 (08:52→21:29)
[2019-06-03] MEDS: aspirin 81mg tab.chew PO SCH (08:52)
[2019-06-03] MEDS: amiodarone 200mg tablet PO SCH ×3 (08:52→21:29)
[2019-06-03] MEDS: furosemide 40mg tablet PO SCH (08:52)
[2019-06-03] MEDS: carvedilol 6.25mg tablet PO SCH ×2 (08:52→20:08)
[2019-06-03] MEDS: pantoprazole 40mg Tablet.DR PO SCH (08:52)
[2019-06-03] MEDS: HYDROcodone/acetaminophen 10/325mg tab PO PRN ×3 (08:54→21:42)
--- NOTE | 2019-06-03 13:41 | NUR ---
Patient in room ICU 2044. I have received report from CHANTELL Walsh on ICU and had the opportunity to ask questions and assume patient care.
[2019-06-03] MEDS: insulin Lispro (HumaLOG) vial - multi-dose SQ SCH ×2 (13:52→20:10)
--- NOTE | 2019-06-03 17:00 | NUR ---
When arriving to the department, patient expressed concerns about receiving enough Lasix due to his scrotal edema and his pain medication. Patient stated he "has not been receiving pain meds". Patient and I went over the medication admin record, this calmed him down, knowing he had received pain medication. Patient admitted his history of opioid use and overuse. Patient is being followed by a pain doctor for his chronic pain. I spoke with YANETH Gomez regarding a possible increase in Lasix. Ankit did not agree with increasing Lasix, due to patient voiding appropriate amounts of fluids. Patient currently has scrotal sling applied (pillow case). Discontinued order for Lyons 10/325 2tab due to patient exhibiting odd behavior. Lyons 10/325 1tab is still available. New Lantus QHS order was also placed, per YANETH Gomez
--- NOTE | 2019-06-03 18:10 | NUR ---
Patient in room MED 316. I have received report from CHANTELL Flynn and had the opportunity to ask questions and assume patient care.
--- NOTE | 2019-06-03 18:12 | NUR ---
Problems reprioritized. Patient report given, questions answered & plan of care reviewed with CHANTELL Davalos and CHANTELL Perry "O".
--- NOTE | 2019-06-03 18:14 | NUR ---
Orientee documentation and med administration: I have reviewed and agree with all interventions, assessments performed and documented by Carmela ABDUL.
--- NOTE | 2019-06-03 19:30 | NUR ---
Performed wound care to right inner thigh saphenous vein harvest site per wound care order.
[2019-06-03] MEDS: potassium Cl 20 mEq SR tablet PO SCH (20:00)
[2019-06-03] MEDS: furosemide 20MG tablet PO SCH (20:07)
[2019-06-03] MEDS: magnesium Cl slow-release 64mg tablet PO SCH (20:08)
--- NOTE | 2019-06-03 21:00 | NUR ---
Performed wound care to the left heel per wound care orders.
[2019-06-03] MEDS: amitriptyline 50mg tablet PO SCH (21:28)
[2019-06-03] MEDS: lisinopril 2.5mg tablet PO SCH (21:28)
[2019-06-03] MEDS: insulin glargine (Lantus) pen - multi-dose SQ SCH (21:36)
[2019-06-03] MEDS: pravastatin 40mg tablet PO SCH (23:30)
--- NOTE | 2019-06-03 23:32 | NUR ---
Patient refused nocs (2300 & 0300) SVN treatments; wants to sleep.
--- NOTE | 2019-06-04 01:00 | NUR ---
chest tube site dressings saturated, removed and cleaned wound and redressed. Found the pacer wires and re-isolate these and placed gauze dressing around. Addendum: 06/04/19 at 0117 by Susannah Liu RN right lower extremity saphenous vein harvest site, removed old dressing due to saturation, skin is weeping due to fluid overload. Cleaned and redressed this wound.
--- NOTE | 2019-06-04 01:20 | NUR ---
This patient is having a hard time getting comfortable due to fluid overload. His skin is weeping from legs, scrotum and arms. Patient's scrotum are very edematous and are supported with a scrotal sling. Lots of time spent with patient repositioning him for comfort.
[2019-06-04 02:00] VITALS: BP 102/62
[2019-06-04] MEDS: ipratropium/albuterol 3ml nebule NEB SCH ×6 (02:56→23:00)
[2019-06-04 04:50] LABS: BASOPHILS % (AUTO) 0.4 % (0-1); EOSINOPHILS # (AUTO) 0.4 X10'3 (0-0.9); EOSINOPHILS % (AUTO) 3.9 % (0-6); HEMATOCRIT 25.9 % (42.0-52.0); HEMOGLOBIN 8.3 g/dl (14.0-17.9); LYMPHOCYTES # (AUTO) 0.8 X10'3 (1.1-4.8); LYMPHOCYTES % (AUTO) 7.5 % (21-51); MEAN CORPUSCULAR HEMOGLOBIN 26.4 PG (27.0-31.0); MEAN CORPUSCULAR VOLUME 82.5 FL (78-98); MONOCYTES # (AUTO) 1.4 X10'3 (0-0.9); MONOCYTES % (AUTO) 12.5 % (2-12); NEUTROPHILS # (AUTO) 8.5 X10'3 (1.8-7.7); NEUTROPHILS % (AUTO) 75.7 % (42-75); PLATELET COUNT 189 X10'3 (140-440); RED BLOOD COUNT 3.14 X10'6 (4.70-6.10); RED CELL DISTRIBUTION WIDTH 17.1 % (11.5-14.5); WHITE BLOOD COUNT 11.2 X10'3 (4.5-11.0)
[2019-06-04 05:00] LABS: ALBUMIN 2.3 G/DL (3.4-5.0); ANION GAP 6 (8-16); BLOOD UREA NITROGEN 33 MG/DL (7-18); BUN/CREATININE RATIO 33.3 (5.4-32.0); CALCIUM 7.8 MG/DL (8.5-10.1); CHLORIDE 105 MMOL/L (99-107); CREATININE 0.99 MG/DL (0.60-1.10); GLUCOSE 132 MG/DL (70-104); MAGNESIUM 1.6 MG/DL (1.5-2.4); POTASSIUM 4.3 MMOL/L (3.5-5.1); SODIUM 141 MMOL/L (135-145); TOTAL CARBON DIOXIDE 30.3 MMOL/L (24-32); eGFR 77 ML/MIN
--- NOTE | 2019-06-04 05:34 | NUR ---
Orienteer documentation: I have reviewed and agree with interventions, assessments performed and documented by CHANTELL Perry. Orienteer Medication Administration: For this medication-pass time frame, medication were reviewed, dispensed, administered and documented per hospital policy by CHANTELL Perry.
--- NOTE | 2019-06-04 05:45 | NUR ---
Patient requesting breathing treatment. Page sent to Respiratory. will continue to monitor.
[2019-06-04 06:00] VITALS: BP 101/59
--- NOTE | 2019-06-04 06:37 | NUR ---
Problems reprioritized. Patient report given, questions answered & plan of care reviewed with CHANTELL Yu.
[2019-06-04] MEDS ORDERED: LIDOcaine 2% 10ml TOPICAL JELLY (Urojet) MM ONE (07:15)
[2019-06-04 07:31] LABS: ANISOCYTOSIS 1+; LARGE PLATELETS FEW; PLATELET ESTIMATE NORMAL
[2019-06-04] MEDS: magnesium Cl slow-release 64mg tablet PO SCH ×2 (07:34→20:00)
[2019-06-04] MEDS: pantoprazole 40mg Tablet.DR PO SCH (07:35)
[2019-06-04] MEDS: furosemide 20MG tablet PO SCH ×2 (07:36→19:36)
[2019-06-04] MEDS: aspirin 81mg tab.chew PO SCH (07:36)
[2019-06-04] MEDS: amiodarone 200mg tablet PO SCH ×3 (07:37→20:16)
[2019-06-04] MEDS: docusate sod 100mg capsule PO SCH ×2 (07:37→19:40)
[2019-06-04] MEDS: pregabalin 75mg capsule PO SCH ×4 (07:37→20:15)
[2019-06-04] MEDS: carvedilol 6.25mg tablet PO SCH ×2 (07:38→19:38)
[2019-06-04] MEDS: potassium Cl 20 mEq SR tablet PO SCH ×2 (07:38→20:00)
[2019-06-04] MEDS: K and/or MAG REPLACEMENT MC SCH (08:00)
[2019-06-04] MEDS: HYDROcodone/acetaminophen 10/325mg tab PO PRN ×3 (08:29→19:37)
--- NOTE | 2019-06-04 10:23 | NUR ---
nutritional dose of humalog insulin not given within 15 minutes after pt ate 100 % of bkfst;missed dose,am accu vdzar=[id number],will check BG before lunch,resume insulin therapy
[2019-06-04 11:12] VITALS: BP 93/53
--- NOTE | 2019-06-04 12:32 | NUR ---
F/u: Pt seen by RD for written/verbal CABG/HH diet eds w/ RD contact information provided. Pt very drowsy during RD visit; eds left at bedside and will need reinforcement prior to d/c once more appropriate. LBM 05/25 receiving colace BID post-op. PO 100% NCS meals meeting needs. Will continue to monitor. Recommendations: 1) advance to heart healthy CHO controlled diet per MD 2) Double eggs QD at breakfast; double protein TIDWM; cottage cheese and fruit w/ breakfasts 3) Routine bowel care 4) Wt per rx Addendum: 06/04/19 at [address] Amended: Links added.
[2019-06-04] MEDS: insulin Lispro (HumaLOG) vial - multi-dose SQ SCH ×2 (12:58→18:14)
[2019-06-04 15:00] VITALS: BP 124/77
--- NOTE | 2019-06-04 16:52 | NUR ---
Replace dressing to the right lower extremity. The other dressing was saturated with serous fluid.
--- NOTE | 2019-06-04 17:45 | NUR ---
Patient arrived to the floor. She is alert and oriented x4. She is ambulatory from [facility] to the hospital bed, she is now c/o 4/10 pain. Assessment completed and assumed care of patient.
[2019-06-04 18:00] VITALS: BP 133/87
--- NOTE | 2019-06-04 18:20 | NUR ---
Patient in room MED 316. I have received report from CHANTELL Flynn and had the opportunity to ask questions and assume patient care.
--- NOTE | 2019-06-04 20:00 | NUR ---
patient is on Mg protocol, pt received 2 slow-mag tabs 128 mg per protocol, Mg was 1.6 Addendum: 06/04/19 at 2153 by Ronda Barrios RN patient on magnesium protocol
[2019-06-04] MEDS: amitriptyline 50mg tablet PO SCH (20:16)
[2019-06-04] MEDS: lisinopril 2.5mg tablet PO SCH (20:17)
[2019-06-04] MEDS: pravastatin 40mg tablet PO SCH (20:17)
[2019-06-04] MEDS: insulin glargine (Lantus) pen - multi-dose SQ SCH (21:31)
[2019-06-04 22:00] VITALS: BP 116/66
[2019-06-05] VITALS (8 sets, daily range): BP systolic 89–134; BP diastolic 49–68
[2019-06-05] MEDS: HYDROcodone/acetaminophen 10/325mg tab PO PRN ×5 (02:57→22:33)
[2019-06-05] MEDS: ipratropium/albuterol 3ml nebule NEB SCH ×6 (03:00→23:25)
[2019-06-05 05:46] LABS: BASOPHILS % (AUTO) 0.4 % (0-1); EOSINOPHILS # (AUTO) 0.4 X10'3 (0-0.9); EOSINOPHILS % (AUTO) 3.2 % (0-6); HEMATOCRIT 26.7 % (42.0-52.0); HEMOGLOBIN 8.5 g/dl (14.0-17.9); LYMPHOCYTES # (AUTO) 0.9 X10'3 (1.1-4.8); LYMPHOCYTES % (AUTO) 6.8 % (21-51); MEAN CORPUSCULAR HEMOGLOBIN 26.2 PG (27.0-31.0); MEAN CORPUSCULAR HGB CONC 31.8 g/dL (33.0-36.5); MEAN CORPUSCULAR VOLUME 82.4 FL (78-98); MEAN PLATELET VOLUME 9.9 FL (7.4-10.4); MONOCYTES # (AUTO) 1.6 X10'3 (0-0.9); NEUTROPHILS # (AUTO) 9.5 X10'3 (1.8-7.7); NEUTROPHILS % (AUTO) 76.6 % (42-75); PLATELET COUNT 233 X10'3 (140-440); RED BLOOD COUNT 3.24 X10'6 (4.70-6.10); RED CELL DISTRIBUTION WIDTH 17.4 % (11.5-14.5); WHITE BLOOD COUNT 12.5 X10'3 (4.5-11.0)
[2019-06-05 06:12] LABS: ALBUMIN 2.3 G/DL (3.4-5.0); ANION GAP 10 (8-16); BLOOD UREA NITROGEN 27 MG/DL (7-18); BUN/CREATININE RATIO 27.8 (5.4-32.0); CALCIUM 8.4 MG/DL (8.5-10.1); CHLORIDE 105 MMOL/L (99-107); CREATININE 0.97 MG/DL (0.60-1.10); GLUCOSE 140 MG/DL (70-104); MAGNESIUM 1.8 MG/DL (1.5-2.4); POTASSIUM 4.5 MMOL/L (3.5-5.1); SODIUM 141 MMOL/L (135-145); TOTAL CARBON DIOXIDE 26.3 MMOL/L (24-32); eGFR 79 ML/MIN
--- NOTE | 2019-06-05 06:24 | NUR ---
Problems reprioritized. Patient report given, questions answered & plan of care reviewed with CHANTELL Flynn and Marielle (student).
--- NOTE | 2019-06-05 06:40 | NUR ---
Problems reprioritized. Patient report given, questions answered & plan of care reviewed with CHANTELL Rosales.
--- NOTE | 2019-06-05 06:42 | NUR ---
Patient in room MED 316. I have received report from CHANTELL Davalos and had the opportunity to ask questions and assume patient care.
[2019-06-05] MEDS: K and/or MAG REPLACEMENT MC SCH (08:00)
[2019-06-05] MEDS: potassium Cl 20 mEq SR tablet PO SCH ×2 (08:00→20:21)
[2019-06-05] MEDS: pantoprazole 40mg Tablet.DR PO SCH (08:07)
[2019-06-05] MEDS: carvedilol 6.25mg tablet PO SCH ×2 (08:09→20:21)
[2019-06-05] MEDS: aspirin 81mg tab.chew PO SCH (08:09)
[2019-06-05] MEDS: docusate sod 100mg capsule PO SCH ×2 (08:09→20:00)
[2019-06-05] MEDS: pregabalin 75mg capsule PO SCH ×4 (08:10→20:21)
[2019-06-05] MEDS: furosemide 20MG tablet PO SCH ×2 (08:10→20:21)
[2019-06-05] MEDS: amiodarone 200mg tablet PO SCH ×3 (08:10→20:21)
[2019-06-05] MEDS: magnesium Cl slow-release 64mg tablet PO SCH ×2 (08:10→20:21)
[2019-06-05] MEDS: insulin Lispro (HumaLOG) vial - multi-dose SQ SCH ×2 (09:12→18:54)
--- NOTE | 2019-06-05 10:53 | NUR ---
SPOKE WITH ADI LOYA ABOUT RESPIRATORY STATUS RECEIVED ORDER AND PAGED ANGIO WILL BE EVALUATED FOR POSSIBLE THORACENTESIS OF LEFT SIDE.
--- NOTE | 2019-06-05 11:43 | NUR ---
I have reviewed and agree with all medications administered and interventions performed by [facility] Student(SUZANNE) Addendum: 06/05/19 at 1144 by Lorri Blake RT Amended: Links added.
--- NOTE | 2019-06-05 18:30 | NUR ---
Patient in room MED 316. I have received report from Rina ABDUL and had the opportunity to ask questions and assume patient care.
--- NOTE | 2019-06-05 19:45 | NUR ---
pt sternal wound vac off, dressing present.
[2019-06-05] MEDS: amitriptyline 50mg tablet PO SCH (20:21)
[2019-06-05] MEDS: pravastatin 40mg tablet PO SCH (20:21)
[2019-06-05] MEDS: lisinopril 2.5mg tablet PO SCH (20:22)
[2019-06-05] MEDS: insulin glargine (Lantus) pen - multi-dose SQ SCH (22:31)
--- NOTE | 2019-06-05 23:05 | NUR ---
pt appears restless, encouraged slow deep breaths. transferred/ 2 person assist, to recliner chair for comfort. heals floated. pt use flutter valve 4-6 x per hours. and max 750 with Incentive spirometer.
[2019-06-06] VITALS (7 sets, daily range): BP systolic 84–126; BP diastolic 51–66
--- NOTE | 2019-06-06 02:21 | NUR ---
Continue to monitor vital signs titrated pt oxygen from 2L to 0.5L/ NC. Continue to monitor BP. 0220 BP 84/51 map 62.
[2019-06-06] MEDS: ipratropium/albuterol 3ml nebule NEB SCH ×6 (03:30→23:01)
[2019-06-06 04:14] LABS: BASOPHILS % (AUTO) 0.3 % (0-1); EOSINOPHILS # (AUTO) 0.5 X10'3 (0-0.9); EOSINOPHILS % (AUTO) 4.7 % (0-6); HEMATOCRIT 27.9 % (42.0-52.0); HEMOGLOBIN 8.9 g/dl (14.0-17.9); LYMPHOCYTES # (AUTO) 1.2 X10'3 (1.1-4.8); LYMPHOCYTES % (AUTO) 11.4 % (21-51); MEAN CORPUSCULAR HEMOGLOBIN 26.9 PG (27.0-31.0); MEAN CORPUSCULAR HGB CONC 31.8 g/dL (33.0-36.5); MEAN CORPUSCULAR VOLUME 84.6 FL (78-98); MEAN PLATELET VOLUME 9.9 FL (7.4-10.4); MONOCYTES # (AUTO) 1.4 X10'3 (0-0.9); NEUTROPHILS # (AUTO) 7.4 X10'3 (1.8-7.7); NEUTROPHILS % (AUTO) 70.6 % (42-75); PLATELET COUNT 251 X10'3 (140-440); RED CELL DISTRIBUTION WIDTH 17.7 % (11.5-14.5); WHITE BLOOD COUNT 10.4 X10'3 (4.5-11.0)
[2019-06-06] MEDS: HYDROcodone/acetaminophen 10/325mg tab PO PRN ×5 (04:18→21:07)
[2019-06-06 04:22] LABS: ALBUMIN 2.3 G/DL (3.4-5.0); ANION GAP 5 (8-16); BLOOD UREA NITROGEN 22 MG/DL (7-18); BUN/CREATININE RATIO 21.6 (5.4-32.0); CHLORIDE 107 MMOL/L (99-107); CREATININE 1.02 MG/DL (0.60-1.10); GLUCOSE 129 MG/DL (70-104); MAGNESIUM 1.7 MG/DL (1.5-2.4); POTASSIUM 4.6 MMOL/L (3.5-5.1); SODIUM 145 MMOL/L (135-145); TOTAL CARBON DIOXIDE 32.7 MMOL/L (24-32); eGFR 74 ML/MIN
--- NOTE | 2019-06-06 05:08 | NUR ---
Wound care complete. right graft site open to air with glue. right damon- weeping dressing changed/ no vito bandage applied. heals- painted with betadine.
--- NOTE | 2019-06-06 05:13 | NUR ---
Orienteer documentation: I have reviewed and agree with all interventions, assessments performed and documented by CHANTELL Kelly. Orienteer Medication Administration: For this medication-pass time frame, all medication were reviewed, dispensed, administered and documented per hospital policy by CHANTELL Kelly.
--- NOTE | 2019-06-06 06:00 | NUR ---
Patient in room MED 316. I have received report from manager night RN and had the opportunity to ask questions and assume patient care.PATIENT AWAKE AND ALERT THIS AM SITTING UP ON SIDE OF BED.ASSISTED PATIENT TO RECLINE BACK IN BED PER HIS REQUEST.HOB UP CALL LIGHT IN REACH. Addendum: 06/06/19 at 0742 by Phuong Howe RN Amended: Links added.
--- NOTE | 2019-06-06 06:45 | NUR ---
Problems reprioritized. Patient report given, questions answered & plan of care reviewed with Suzanne RN.
[2019-06-06] MEDS: potassium Cl 20 mEq SR tablet PO SCH ×2 (07:16→20:00)
[2019-06-06] MEDS: K and/or MAG REPLACEMENT MC SCH (08:00)
[2019-06-06] MEDS: pantoprazole 40mg Tablet.DR PO SCH (08:23)
[2019-06-06] MEDS: amiodarone 200mg tablet PO SCH ×3 (08:24→21:12)
[2019-06-06] MEDS: docusate sod 100mg capsule PO SCH ×2 (08:24→21:10)
[2019-06-06] MEDS: furosemide 20MG tablet PO SCH ×2 (08:24→21:12)
[2019-06-06] MEDS: magnesium Cl slow-release 64mg tablet PO SCH ×2 (08:24→21:17)
[2019-06-06] MEDS: pregabalin 75mg capsule PO SCH ×4 (08:24→21:17)
[2019-06-06] MEDS: aspirin 81mg tab.chew PO SCH (08:24)
[2019-06-06] MEDS: carvedilol 6.25mg tablet PO SCH ×2 (08:25→21:11)
--- NOTE | 2019-06-06 09:15 | NUR ---
316 pt Lalo desating, requesting breathing treatment PRN. Thank you.
[2019-06-06] MEDS: insulin Lispro (HumaLOG) vial - multi-dose SQ SCH ×2 (14:03→19:42)
--- NOTE | 2019-06-06 18:00 | NUR ---
Patient in room MED 316. I have received report from Jessica ABDUL and had the opportunity to ask questions and assume patient care.
[2019-06-06] MEDS: insulin glargine (Lantus) pen - multi-dose SQ SCH (21:00)
[2019-06-06] MEDS: lisinopril 2.5mg tablet PO SCH (21:09)
[2019-06-06] MEDS: amitriptyline 50mg tablet PO SCH (21:09)
[2019-06-06] MEDS: pravastatin 40mg tablet PO SCH (21:17)
[2019-06-07 02:00] VITALS: BP 111/51
[2019-06-07] MEDS: HYDROcodone/acetaminophen 10/325mg tab PO PRN ×5 (02:03→20:16)
[2019-06-07] MEDS: ipratropium/albuterol 3ml nebule NEB SCH ×6 (03:16→23:00)
[2019-06-07 06:00] VITALS: BP 123/67
--- NOTE | 2019-06-07 06:15 | NUR ---
Patient in room MED 316. I have received report from CHANTELL Neves and had the opportunity to ask questions and assume patient care.
--- NOTE | 2019-06-07 06:48 | NUR ---
Problems reprioritized. Patient report given, questions answered & plan of care reviewed with Mary ABDUL.
[2019-06-07] MEDS: amiodarone 200mg tablet PO SCH ×2 (07:16→20:15)
[2019-06-07] MEDS: potassium Cl 20 mEq SR tablet PO SCH ×2 (07:16→20:00)
[2019-06-07] MEDS: magnesium Cl slow-release 64mg tablet PO SCH ×2 (07:16→20:24)
[2019-06-07] MEDS: furosemide 20MG tablet PO SCH ×2 (07:16→20:14)
[2019-06-07] MEDS: pregabalin 75mg capsule PO SCH ×4 (07:17→20:24)
[2019-06-07] MEDS: carvedilol 6.25mg tablet PO SCH ×2 (07:17→20:17)
[2019-06-07] MEDS: aspirin 81mg tab.chew PO SCH (07:17)
[2019-06-07] MEDS: docusate sod 100mg capsule PO SCH ×2 (07:17→20:17)
[2019-06-07] MEDS: pantoprazole 40mg Tablet.DR PO SCH (07:17)
--- NOTE | 2019-06-07 07:30 | NUR ---
Pt refused morning dose of insulin. Blood glucose 127.
[2019-06-07] MEDS: K and/or MAG REPLACEMENT MC SCH (08:00)
[2019-06-07 08:05] LABS: ALBUMIN 2.5 G/DL (3.4-5.0); ANION GAP 6 (8-16); BLOOD UREA NITROGEN 15 MG/DL (7-18); BUN/CREATININE RATIO 16.7 (5.4-32.0); CHLORIDE 107 MMOL/L (99-107); GLUCOSE 141 MG/DL (70-104); MAGNESIUM 1.6 MG/DL (1.5-2.4); POTASSIUM 4.6 MMOL/L (3.5-5.1); SODIUM 144 MMOL/L (135-145); TOTAL CARBON DIOXIDE 30.9 MMOL/L (24-32); eGFR 86 ML/MIN
[2019-06-07] MEDS ORDERED: magnesium 2GM in 50ml NS 50 ML IV PRN (08:40)
[2019-06-07] MEDS ORDERED: potassium Cl 20mEq/100mL bag 100 ML IV PRN (08:40)
[2019-06-07] MEDS ORDERED: potassium Cl 20 mEq SR tablet PO PRN (08:40)
[2019-06-07] MEDS: magnesium 4gm in 100ml NS 100 ML IV PRN (09:04)
[2019-06-07] MEDS: spironolactone 25 MG tablet PO SCH (09:15)
[2019-06-07 10:00] VITALS: BP 111/54
[2019-06-07] MEDS: insulin Lispro (HumaLOG) vial - multi-dose SQ SCH ×2 (13:05→19:41)
[2019-06-07 14:00] VITALS: BP 121/59
--- NOTE | 2019-06-07 17:41 | NUR ---
Orienteer documentation: I have reviewed and agree with all interventions, assessments performed and documented by Mary ABDUL.
[2019-06-07 18:00] VITALS: BP 126/75
--- NOTE | 2019-06-07 18:15 | NUR ---
Problems reprioritized. Patient report given, questions answered & plan of care reviewed with CHANTELL Neves.
--- NOTE | 2019-06-07 18:23 | NUR ---
Patient in room MED 316. I have received report from Mary ABDUL and had the opportunity to ask questions and assume patient care.
[2019-06-07] MEDS: amitriptyline 50mg tablet PO SCH (20:15)
[2019-06-07] MEDS: lisinopril 2.5mg tablet PO SCH (20:15)
[2019-06-07] MEDS: pravastatin 40mg tablet PO SCH (20:24)
[2019-06-07] MEDS: insulin glargine (Lantus) pen - multi-dose SQ SCH (21:00)
[2019-06-07 22:00] VITALS: BP 141/64
[2019-06-08] MEDS: HYDROcodone/acetaminophen 10/325mg tab PO PRN ×7 (00:17→22:51)
[2019-06-08 02:00] VITALS: BP 122/62
[2019-06-08] MEDS: ipratropium/albuterol 3ml nebule NEB SCH ×6 (03:33→23:00)
[2019-06-08 06:00] VITALS: BP 122/96
--- NOTE | 2019-06-08 06:35 | NUR ---
I have received report from Pura ABDUL and had the opportunity to ask questions and assume patient care.
[2019-06-08] MEDS: K and/or MAG REPLACEMENT MC SCH (08:00)
[2019-06-08] MEDS: carvedilol 6.25mg tablet PO SCH ×2 (08:29→20:39)
[2019-06-08] MEDS: potassium Cl 20 mEq SR tablet PO SCH ×2 (08:29→20:38)
[2019-06-08] MEDS: docusate sod 100mg capsule PO SCH ×2 (08:29→20:38)
[2019-06-08] MEDS: furosemide 20MG tablet PO SCH ×2 (08:29→20:38)
[2019-06-08] MEDS: pregabalin 75mg capsule PO SCH ×4 (08:29→20:38)
[2019-06-08] MEDS: aspirin 81mg tab.chew PO SCH (08:29)
[2019-06-08] MEDS: amiodarone 200mg tablet PO SCH ×2 (08:29→20:41)
[2019-06-08] MEDS: pantoprazole 40mg Tablet.DR PO SCH (08:30)
[2019-06-08] MEDS: magnesium Cl slow-release 64mg tablet PO SCH ×2 (08:30→20:39)
[2019-06-08] MEDS: spironolactone 25 MG tablet PO SCH (08:30)
[2019-06-08] MEDS: insulin Lispro (HumaLOG) vial - multi-dose SQ SCH ×3 (08:34→18:51)
[2019-06-08 10:00] VITALS: BP 118/66
[2019-06-08 11:12] LABS: ALBUMIN 2.3 G/DL (3.4-5.0); ANION GAP 4 (8-16); BLOOD UREA NITROGEN 16 MG/DL (7-18); BUN/CREATININE RATIO 18.2 (5.4-32.0); CALCIUM 7.8 MG/DL (8.5-10.1); CHLORIDE 105 MMOL/L (99-107); CREATININE 0.88 MG/DL (0.60-1.10); GLUCOSE 230 MG/DL (70-104); MAGNESIUM 1.8 MG/DL (1.5-2.4); POTASSIUM 4.3 MMOL/L (3.5-5.1); SODIUM 143 MMOL/L (135-145); TOTAL CARBON DIOXIDE 33.6 MMOL/L (24-32); eGFR 88 ML/MIN
[2019-06-08 15:00] VITALS: BP 129/54
--- NOTE | 2019-06-08 15:03 | NUR ---
Patient refused PT multiple times today. Educated as to why he needs to work with them. Says he will walk with us later today. Just not up for it earlier today and he had a guest.
[2019-06-08 18:00] VITALS: BP 133/73
--- NOTE | 2019-06-08 18:20 | NUR ---
Problems reprioritized. Patient report given, questions answered & plan of care reviewed with Jeb ABDUL.
--- NOTE | 2019-06-08 18:25 | NUR ---
Patient in room MED 316. I have received report from CHANTELL Haider and had the opportunity to ask questions and assume patient care.
[2019-06-08] MEDS: amitriptyline 50mg tablet PO SCH (20:39)
[2019-06-08] MEDS: lisinopril 2.5mg tablet PO SCH (20:41)
[2019-06-08] MEDS: pravastatin 40mg tablet PO SCH (20:41)
[2019-06-08] MEDS: insulin glargine (Lantus) pen - multi-dose SQ SCH (21:04)
[2019-06-08 22:00] VITALS: BP 104/50
[2019-06-08] MEDS: magnesium 4gm in 100ml NS 100 ML IV PRN (22:44)
[2019-06-09 02:00] VITALS: BP 89/48
[2019-06-09] MEDS: HYDROcodone/acetaminophen 10/325mg tab PO PRN ×5 (02:56→21:19)
[2019-06-09] MEDS: ipratropium/albuterol 3ml nebule NEB SCH ×6 (03:01→23:00)
[2019-06-09 06:00] VITALS: BP 118/65
--- NOTE | 2019-06-09 06:00 | NUR ---
reviewed and agreed with CHANTELL Perry's charting
--- NOTE | 2019-06-09 06:25 | NUR ---
Problems reprioritized. Patient report given, questions answered & plan of care reviewed with CHANTELL Yu.
--- NOTE | 2019-06-09 06:28 | NUR ---
Patient in room MED 316. I have received report from CHANTELL Perry and had the opportunity to ask questions and assume patient care.
[2019-06-09 06:43] LABS: ALBUMIN 2.3 G/DL (3.4-5.0); ANION GAP 5 (8-16); BLOOD UREA NITROGEN 15 MG/DL (7-18); BUN/CREATININE RATIO 15.6 (5.4-32.0); CALCIUM 8.2 MG/DL (8.5-10.1); CHLORIDE 106 MMOL/L (99-107); CREATININE 0.96 MG/DL (0.60-1.10); GLUCOSE 139 MG/DL (70-104); MAGNESIUM 2.4 MG/DL (1.5-2.4); POTASSIUM 4.7 MMOL/L (3.5-5.1); SODIUM 145 MMOL/L (135-145); TOTAL CARBON DIOXIDE 34.3 MMOL/L (24-32); eGFR 80 ML/MIN
[2019-06-09] MEDS: potassium Cl 20 mEq SR tablet PO SCH ×2 (07:23→20:00)
[2019-06-09] MEDS: pregabalin 75mg capsule PO SCH ×4 (07:39→21:17)
[2019-06-09] MEDS: furosemide 20MG tablet PO SCH ×2 (07:39→20:02)
[2019-06-09] MEDS: aspirin 81mg tab.chew PO SCH (07:39)
[2019-06-09] MEDS: magnesium Cl slow-release 64mg tablet PO SCH ×2 (07:39→20:02)
[2019-06-09] MEDS: pantoprazole 40mg Tablet.DR PO SCH (07:39)
[2019-06-09] MEDS: carvedilol 6.25mg tablet PO SCH ×2 (07:39→20:02)
[2019-06-09] MEDS: spironolactone 25 MG tablet PO SCH (07:40)
[2019-06-09] MEDS: amiodarone 200mg tablet PO SCH ×3 (07:40→21:18)
[2019-06-09] MEDS: docusate sod 100mg capsule PO SCH ×2 (07:40→20:02)
[2019-06-09] MEDS: K and/or MAG REPLACEMENT MC SCH (07:45)
--- NOTE | 2019-06-09 08:07 | NUR ---
Pt refused morning dose of insulin. 0700 blood glucose 123. Addendum: 06/09/19 at 0809 by Mary Padilla RN Educated patient on diabetic nutritional protocol; explained risks associated with hyperglycemia and uncorrected blood sugars.
[2019-06-09 11:00] VITALS: BP 101/51
[2019-06-09] MEDS: insulin Lispro (HumaLOG) vial - multi-dose SQ SCH ×2 (13:37→18:47)
[2019-06-09 15:00] VITALS: BP 109/60
--- NOTE | 2019-06-09 15:00 | NUR ---
Orientee med administration and documentation: I have reviewed and agree with all interventions, assessments performed and documented by Mary ABDUL.
[2019-06-09] MEDS ORDERED: LIDOcaine 2% 10ml TOPICAL JELLY (Urojet) MM ONE (15:35)
[2019-06-09 18:00] VITALS: BP 113/56
--- NOTE | 2019-06-09 18:18 | NUR ---
Problems reprioritized. Patient report given, questions answered & plan of care reviewed with CHANTELL Narvaez.
--- NOTE | 2019-06-09 19:04 | NUR ---
Received patient report fromDru, all questions were answered.
[2019-06-09] MEDS ORDERED: zolpidem 5mg tablet PO ONE (21:00)
[2019-06-09] MEDS: insulin glargine (Lantus) pen - multi-dose SQ SCH (21:00)
[2019-06-09] MEDS: lisinopril 2.5mg tablet PO SCH (21:17)
[2019-06-09] MEDS: pravastatin 40mg tablet PO SCH (21:17)
[2019-06-09] MEDS: amitriptyline 50mg tablet PO SCH (21:18)
--- NOTE | 2019-06-09 21:22 | NUR ---
The patient's O2 sat flactuates in low 90's, refused to put on the O2 via NC despite explaining that his O2 sat is low.
--- NOTE | 2019-06-09 21:29 | NUR ---
Patient refused his night time lantus. His 2100 BS was 142. Addendum: 06/09/19 at 2132 by Brice Mattson RN BS was 144 not 142
[2019-06-09 22:00] VITALS: BP 128/56
--- NOTE | 2019-06-09 22:35 | NUR ---
O2 Sat at rest on room air: 75% If below 89%: Recovery O2 Sat at rest on 3 LPM: 97% via nasal cannula (mask/nasal cannula, etc..) No further documentation is necessary.
--- NOTE | 2019-06-09 22:39 | NUR ---
Paged Case Management. Oxygenation qualification template in chart.
[2019-06-10] MEDS: HYDROcodone/acetaminophen 10/325mg tab PO PRN ×2 (01:11→08:17)
[2019-06-10 02:00] VITALS: BP 115/55
[2019-06-10] MEDS: ipratropium/albuterol 3ml nebule NEB SCH ×2 (03:06→07:13)
--- NOTE | 2019-06-10 04:39 | NUR ---
Attempted to remove patients liriano per protocol, 6 hours before discharge. Patient refused to have the Liriano removed, Patient was educated about possible bladder retention and urinary tract infection. I spoke to charge Yvrose, who also spoke to the patient and the patient also refused at that time as well. Will pass on to day shift the need to evaluate his liriano.
[2019-06-10 05:51] LABS: ALBUMIN 2.3 G/DL (3.4-5.0); ANION GAP 3 (8-16); BLOOD UREA NITROGEN 19 MG/DL (7-18); BUN/CREATININE RATIO 18.3 (5.4-32.0); CALCIUM 8.8 MG/DL (8.5-10.1); CHLORIDE 106 MMOL/L (99-107); CREATININE 1.04 MG/DL (0.60-1.10); GLUCOSE 150 MG/DL (70-104); POTASSIUM 4.1 MMOL/L (3.5-5.1); SODIUM 144 MMOL/L (135-145); TOTAL CARBON DIOXIDE 35.2 MMOL/L (24-32); eGFR 73 ML/MIN
[2019-06-10 06:00] VITALS: BP 137/60
--- NOTE | 2019-06-10 06:13 | NUR ---
Problems reprioritized. Patient report given, questions answered & plan of care reviewed with Ian.
[2019-06-10] MEDS: K and/or MAG REPLACEMENT MC SCH (07:55)
[2019-06-10] MEDS: pantoprazole 40mg Tablet.DR PO SCH (08:12)
[2019-06-10] MEDS: pregabalin 75mg capsule PO SCH (08:13)
[2019-06-10] MEDS: aspirin 81mg tab.chew PO SCH (08:13)
[2019-06-10] MEDS: amiodarone 200mg tablet PO SCH (08:14)
[2019-06-10] MEDS: furosemide 20MG tablet PO SCH (08:14)
[2019-06-10] MEDS: docusate sod 100mg capsule PO SCH (08:15)
[2019-06-10] MEDS: carvedilol 6.25mg tablet PO SCH (08:15)
[2019-06-10] MEDS: magnesium Cl slow-release 64mg tablet PO SCH (08:16)
[2019-06-10] MEDS: potassium Cl 20 mEq SR tablet PO SCH (08:17)
[2019-06-10] MEDS: spironolactone 25 MG tablet PO SCH (08:18)
[2019-06-10] MEDS: insulin Lispro (HumaLOG) vial - multi-dose SQ SCH (08:40)
--- NOTE | 2019-06-10 11:19 | NUR ---
f/c dc'd w/o problem,brief placed on pt to control dribbling,dressing changed to RLE, iv dc'd from left upper arm with tip intact,site clear,pt vladislav well. pt remains on oxygen,.BLE wrapped with vito bandages to below knee to control swelling,pt transported via wheelchair with all belongings to [facility]
== END 2019-06-10 12:17 | DRG 235 ==
LOC: ER 22:19 → EDBD 22:20 → ER 22:20 → PCU 3S 05-24 01:16 → MERGE 05-24 01:16 → MED 3N 05-26 01:00 → ICU 2S 05-28 09:52 → MED 3N 06-03 14:10
PROVIDERS: ADMIT Internal Medicine; ATTEND Thoracic Surgery (Cardiothoracic Vascular Surgery)
PROC: B32T1ZZ Computerized Tomography (CT Scan) of Left Pulmonary Artery using Low Osmolar Contrast (ICD-10-PCS; 2019-05-23)
PROC: B3201ZZ Computerized Tomography (CT Scan) of Thoracic Aorta using Low Osmolar Contrast (ICD-10-PCS; 2019-05-23)
PROC: B32S1ZZ Computerized Tomography (CT Scan) of Right Pulmonary Artery using Low Osmolar Contrast (ICD-10-PCS; 2019-05-23)
PROC: 021209W Bypass Coronary Artery, Three Arteries from Aorta with Autologous Venous Tissue, Open Approach (ICD-10-PCS; 2019-05-28)
PROC: 06BP4ZZ Excision of Right Saphenous Vein, Percutaneous Endoscopic Approach (ICD-10-PCS; 2019-05-28)
PROC: 02NN0ZZ Release Pericardium, Open Approach (ICD-10-PCS; 2019-05-28)
PROC: B24BZZ4 Ultrasonography of Heart with Aorta, Transesophageal (ICD-10-PCS; 2019-05-28)
PROC: 5A1221Z Performance of Cardiac Output, Continuous (ICD-10-PCS; 2019-05-28)
PROC: 02HV33Z Insertion of Infusion Device into Superior Vena Cava, Percutaneous Approach (ICD-10-PCS; 2019-05-28)
PROC: 02100Z9 Bypass Coronary Artery, One Artery from Left Internal Mammary, Open Approach (ICD-10-PCS; principal; 2019-05-28 06:52)
PROC: 30233N1 Transfusion of Nonautologous Red Blood Cells into Peripheral Vein, Percutaneous Approach (ICD-10-PCS; 2019-05-30)
PROC: 0W9B3ZZ Drainage of Left Pleural Cavity, Percutaneous Approach (ICD-10-PCS; 2019-06-05)
DX: I25.10 Atherosclerotic heart disease of native coronary artery without angina pectoris (principal); I50.43 Acute on chronic combined systolic (congestive) and diastolic (congestive) heart failure; N17.0 Acute kidney failure with tubular necrosis; I13.0 Hypertensive heart and chronic kidney disease with heart failure and stage 1 through stage 4 chronic kidney disease, or unspecified chronic kidney disease; I47.2 Ventricular tachycardia; F17.213 Nicotine dependence, cigarettes, with withdrawal; I31.0 Chronic adhesive pericarditis; R18.8 Other ascites; J91.8 Pleural effusion in other conditions classified elsewhere; D62 Acute posthemorrhagic anemia; N18.9 Chronic kidney disease, unspecified; I48.0 Paroxysmal atrial fibrillation; E11.22 Type 2 diabetes mellitus with diabetic chronic kidney disease; E11.42 Type 2 diabetes mellitus with diabetic polyneuropathy; E11.51 Type 2 diabetes mellitus with diabetic peripheral angiopathy without gangrene; E78.00 Pure hypercholesterolemia, unspecified; E78.5 Hyperlipidemia, unspecified; I34.0 Nonrheumatic mitral (valve) insufficiency; G47.00 Insomnia, unspecified; M19.90 Unspecified osteoarthritis, unspecified site; I43 Cardiomyopathy in diseases classified elsewhere; E83.51 Hypocalcemia; I42.0 Dilated cardiomyopathy; I45.4 Nonspecific intraventricular block; F41.9 Anxiety disorder, unspecified; L53.9 Erythematous condition, unspecified; I87.2 Venous insufficiency (chronic) (peripheral); Z79.899 Other long term (current) drug therapy; Z86.73 Personal history of transient ischemic attack (TIA), and cerebral infarction without residual deficits; Z88.8 Allergy status to other drugs, medicaments and biological substances; I25.2 Old myocardial infarction; Z78.1 Physical restraint status; Z79.01 Long term (current) use of anticoagulants; Z79.82 Long term (current) use of aspirin
CPT/HCPCS: 0232T; 32555; 93306; 93312; 93325; 96374; 99285; 36415; 36600; 71045; 71046; 71275; 76937; 80048; 80053; 80074; 80076; 82330; 82435; 82803; 82947; 82948; 83036; 83605; 83735; 83880; 84100; 84132; 84145; 84295; 84484; 85018; 85025; 85027; 85347; 85384; 85610; 85730; 86885; 86900; 86901; 86920; 87040; 87081; 93005; 93880; 93970; 94002; 94003; 94060; 94640; 94667; 94668; 94760; 97110; 97116; 97162; 97530; A4338; A4618; A6258; A6402; A6449; A7000; A7048; C1713; C1751; C9113; G0378; J0171; J0282; J0690; J1265; J1644; J1650; J1815; J1940; J2060; J2150; J2250; J2270; J2440; J2720; J2795; J2930; J3370; J3475; J3480; J3490; J7030; J7040; J7050; J7120; P9016; P9045; P9047; Q9967